=== PATIENT | male | born 1950 | race Caucasian/White ===

== ENCOUNTER → 2016-08-18 | Outpatient (CLI) | payer BC ==
[~2016-08-18] MED LIST: ASPCH81 PO; ASPI81TA28 PO; CLTP PO; GLUCTAB7 PO; LEVO50TA PO; LISI-725 PO; MULT-506 PO; OMEG10007 PO; REGADENOSON 0.4 MG/5 ML SYR ONE; SIMV20TA2 PO
--- NOTE | 2016-08-18 20:06 | Myocardial Perfusion Study ---
Myocardial Perfusion Study Rpt Myocardial Perfusion Study Rpt Date of Service 08/18/2016 Myocardial Perfusion Study Rpt Procedure: 1. Myocardial perfusion study performed in multiple views/images 2. Lexiscan pharmacologic stress ECG Indications: 1. Acute chest pain 2. Hyperlipidemia Consent: Informed written consent was obtained prior to the procedure. Ordering clinician: Clair Garcia Procedural details: For the stress portion of the study, Lexiscan 0.4 mg was intravenously administered followed by a saline flush. This was followed by 33 mCi of technetium 99m Cardiolite, injected at 1:15 p.m. on 08/18/16. 30 minutes following the injection, imaging of the heart was performed in multiple projections. For the rest portion of the study, 11.2 mCi technetium 99m Cardiolite was injected intravenously at 11:30 a.m. on 08/18/2016. 1 hour following the injection, imaging of the heart was performed in the same projections. Lexiscan stress ECG: Resting ECG demonstrated: NSR at 68 bpm Maximum heart rate: 91 bpm Resting blood pressure: 156/84 mmHg Maximum blood pressure: 156/84 mmHg Maximal, age-predicted heart rate: 58 % Significant ST changes: None Arrhythmia: None Symptoms: No chest pain reported. Findings: Rotating raw imaging demonstrated no significant lung uptake. There is no significant motion artifact. Heart size appeared normal. Myocardial perfusion was normal without significant fixed or reversible defect. Ejection fraction: 74 % Wall motion: Normal No significant transient ischemic dilation. Impression: 1. Normal myocardial perfusion without suggestion of significant ischemia or infarct. 2. Normal wall motion. 3. Hyperdynamic LV systolic function. EF 74%. 4. No arrhythmia. 5. No chest pain reported. 6. Nondiagnostic Lexiscan ECG.
== END | disposition home or self-care (01) ==
LOC: C.NUCL 11:13
PROVIDERS: ATTEND Nurse Practitioner Family
DX: R07.9 Chest pain, unspecified (principal); I10 Essential (primary) hypertension; I51.7 Cardiomegaly; E78.2 Mixed hyperlipidemia; M25.552 Pain in left hip

== ENCOUNTER → 2016-09-10 | Outpatient (CLI) | payer BC ==
[~2016-09-10] MED LIST changes: -REGADENOSON 0.4 MG/5 ML SYR ONE
--- NOTE | 2016-09-10 09:50 | DIAGNOSTIC IMAGING REPORT ---
LEFT HIP UNILATERAL 2 VIEWS CLINICAL HISTORY: 66 years-old Male presenting with LOWER BACK PAIN/LEFT HIP PAIN. TECHNIQUE: Frontal and frog-leg lateral views of the left hip were obtained. COMPARISON: None. FINDINGS: No acute fracture or malalignment. Hip joint congruent. No significant degenerative change. Regional soft tissues within normal limits. IMPRESSION: No acute osseous injury of the left hip. Electronically signed by: Collin Becker M.D. 09/10/2016 9:49 AM Dictated Date/Time: 09/10/2016 9:48 AM
--- NOTE | 2016-09-10 09:59 | DIAGNOSTIC IMAGING REPORT ---
L-SPINE MIN 4 VIEWS ROUTINE CLINICAL HISTORY: 66 years-old Male presenting with LOWER BACK PAIN/LEFT HIP PAIN. TECHNIQUE: Frontal, bilateral oblique, and lateral views of the lumbar spine as well as coned in lateral view of the lumbosacral junction were obtained. COMPARISON: Correlation made to abdominal radiograph from 2010. FINDINGS: Normal lumbar lordosis. Mild anterior vertebral body height loss at L1 and L2. Alignment maintained. Intervertebral disc spaces preserved. Multilevel degenerative changes evidenced by anterior osteophytosis at nearly every level. Osseous neural foraminal narrowing may be present at L4-5 and L5-S1. No radiographic evidence of acute fracture or subluxation. IMPRESSION: Multilevel degenerative changes with possible osseous neural foraminal narrowing at L4-5 and L5-S1. Mild anterior vertebral body height loss at L1 and 2 without mann evidence of compression fractures. Electronically signed by: Collin Becker M.D. 09/10/2016 9:57 AM Dictated Date/Time: 09/10/2016 9:54 AM
== END | disposition home or self-care (01) ==
LOC: C.RAD1850 09:24
PROVIDERS: ATTEND Nurse Practitioner Family
DX: M54.5 Low back pain (principal); M25.552 Pain in left hip; R26.2 Difficulty in walking, not elsewhere classified

== ENCOUNTER → 2016-11-25 | Day surgery (SDC) | payer BC ==
[2016-11-06 07:40] VITALS: Ht 167.6 cm; Wt 104.5 kg
[~2016-11-25] VITALS: Ht 167.6 cm; Wt 104.5 kg
[~2016-11-25] MED LIST changes: -ASPCH81 PO; +BUPIVACAINE 0.25% 2.5MG/ML PF 10 ML VIAL ONE; -CLTP PO; +IOPAMIDOL INJ 61% 15 ML VIAL ONE; +LIDOCAINE HCL 1% MPF 5 ML VIAL ONE
--- NOTE | 2016-11-25 15:29 | History & Physical Bridge - SC ---
H&P Re-Evaluation Bridge Note: I have examined the patient, reviewed the History & Physical and in the interval since the performance of the History & Physical I have noted the following changes of clinical significance: No changes noted
[2016-11-25 15:51] VITALS: TEMP 37.1
--- NOTE | 2016-11-25 15:52 | Discharge Instructions ---
Discharge Instructions Date of Service Nov 25, 2016. Visit Reason for Visit: Sacroiliitis Discharge Discharge Diagnosis / Problem: low back pain Discharge Goals Goal(s): Decrease discomfort, Improve function Activity Recommendations Activity Limitations: resume your previous activity Anesthesia . Post Anesthesia Instructions: If you have had General Anesthesia or IV Sedation: * Do not drive today. * Resume driving when surgeon permits. * Do not make important decisions or sign legal documents today. * Call surgeon for: 1. Temperature elevations greater than 101 degrees F. 2. Uncontrollable pain. 3. Excessive bleeding. 4. Persistent nausea and vomiting. 5. Medication intolerance (nausea, vomiting or rash). * For nausea and vomiting use only clear liquids such as: tea, soda, bouillon until nausea subsides, then gradually increase diet as tolerated. * If you have any concerns or questions, call your surgeon's office. If physician is unavailable and it is an emergency, call 911 or go to the nearest emergency room. . Diet Recommendations Recommended Home Diet: resume previous diet Procedures Procedures Performed: LEFT SACROILIAC JOINT INJECTION Pending Studies Studies pending at discharge: no Medical Emergencies . Who to Call and When: Medical Emergencies: If at any time you feel your situation is an emergency, please call 911 immediately. . Non-Emergent Contact Non-Emergency issues call your: Specialist . . "Provider Documentation" section prepared by Martin Ferreira. .
[2016-11-25 16:06] VITALS: BP 137/75; PULSE 79; O2SAT 97
--- NOTE | 2016-11-25 16:12 | OPERATIVE REPORT ---
DATE OF OPERATION: 11/25/2016 PREOPERATIVE DIAGNOSES: 1. Left sacroiliitis. 2. Underlying scoliosis. POSTOPERATIVE DIAGNOSIS: Same. PROCEDURE: Left SI joint injection under fluoroscopic guidance. SURGEON: Dr. Martin Ferreira. INDICATIONS: The patient is a 66-year-old white male who has sacroiliac problems and pain localizing to the SI joint. It has not responded to conservative treatment. He presents today for an SI joint injection to provide him with relief. PHYSICAL EXAMINATION: Pleasant male seated comfortably. He has point tenderness to palpation of the SI joint, worse with extension. No problems with flexion. Negative seated straight leg raise. Equivocal Mark maneuver, but positive sacral compression maneuver. CONSENT: Verbal and written consent was obtained from the patient. Risks and benefits were reviewed. Risks include but are not limited to abscess and allergic reaction. The patient wishes to proceed. PROCEDURE: The patient was taken back to the special procedures room of the [facility] where he was maintained in a prone position. Backside was cleansed with Betadine x3 and a dry sterile dressing was applied. Fluoroscope was used to identify the left SI joint and the overlying skin was anesthetized with 2.5 mL of lidocaine 1% with a 25 gauge 1.5-inch needle of lidocaine 1%. A 25 gauge 3.5 inch spinal needle was then directed under fluoroscopic guidance into the SI joint. Isovue-300 contrast 0.25 mL demonstrated intraarticular uptake. He then underwent injection after negative aspiration of 40 mg of Depo-Medrol and 1.5 mL of bupivacaine 0.25%. Injection was well tolerated. DISPOSITION: 1. The patient is taken out into the discharge recovery area where he will be discharged home once discharge criteria have been met. 2. Follow up in the [facility] office in 2-4 weeks. I attest to the content of the Intraoperative Record and any orders documented therein. Any exception s are noted below.
== END | disposition home or self-care (01) ==
LOC: X.SURG 14:13
PROVIDERS: ATTEND Physical Medicine & Rehabilitation
DX: M46.1 Sacroiliitis, not elsewhere classified (principal); M41.80 Other forms of scoliosis, site unspecified; I10 Essential (primary) hypertension; N40.0 Benign prostatic hyperplasia without lower urinary tract symptoms; Z79.82 Long term (current) use of aspirin; Z79.899 Other long term (current) drug therapy

== ENCOUNTER 2022-06-21 17:18 | Inpatient (IN) ==
[2022-06-21] MEDS ORDERED: HYDROmorphone INJ 1 MG/ML SYRINGE IV STA (17:51)
[2022-06-21] MEDS ORDERED: KETOROLAC 30 MG/ML VIAL IV STA (17:51)
[2022-06-21] MEDS ORDERED: dexAMETHasone**PF** 10 MG/ML VIAL IV ONE (17:51)
[2022-06-21] MEDS ORDERED: ONDANSETRON INJ 2 MG/ML 2 ML VIAL IV STA (17:51)
[2022-06-21 18:14] LABS: Basophils # (auto) 0.09 K/uL (0-0.2); Basophils % (auto) 0.5 %; Hematocrit (blood only) 45.1 % (42.0-52.0); Immature Granulocytes # (auto) 0.34 K/uL (0.01-0.20); Immature Granulocytes % (auto) 2.1 %; Lymphocytes # (auto) 2.07 K/uL (1.2-3.4); Lymphocytes % (auto) 12.6 %; Mean Corpuscular Hgb Conc 35.5 g/dL (32.0-36.0); Mean Corpuscular Volume 84.6 fL (80.0-100.0); Mean Platelet Volume 10.1 fL (9.4-12.4); Monocytes # (auto) 1.02 K/uL (0.11-0.59); Monocytes % (auto) 6.2 %; Neutrophils # (auto) 12.95 K/uL (1.40-6.50); Neutrophils % (auto) 78.6 %; Platelet Count 316 K/uL (130-400); RDW Coefficient of Variation 14.5 % (11.5-14.5); RDW Standard Deviation 44.4 fL (36.4-46.3); Red Blood Count 5.33 M/uL (4.70-6.10); White Blood Count 16.47 K/ul (4.8-10.8)
[2022-06-21 18:33] LABS: Alanine Aminotransferase 33 U/L (7-52); Albumin Globulin Ratio 1.3 (0.9-2); Albumin Level 4.3 gm/dl (3.4-5.0); Alkaline Phosphatase 60 U/L (34-104); Anion Gap 9 (3-11); Aspartate Aminotransferase 20 U/L (13-39); BUN Creatinine Ratio 31.6 (10-20); Bilirubin,Total 0.3 mg/dl (0.2-1.0); Blood Urea Nitrogen 30 mg/dl (6-23); C Reactive Protein < 0.50 mg/dl (0-0.5); Calcium 9.3 mg/dl (8.6-10.3); Carbon Dioxide 21 mmol/L (21-32); Chloride 105 mmol/L (98-107); Creatinine Clr Calc Pharmacy 81.1 ml/min; Est GFR (African American) 93.6 ml/min; Est GFR (Non-African American) 80.8 ml/min; Globulin 3.2 gm/dl (2.5-4.0); Glucose 151 mg/dl (70-99(Fasting)); Potassium 4.4 mmol/L (3.5-5.1); Sodium 135 mmol/L (136-145); Total Protein 7.5 gm/dl (6.0-8.3)
--- NOTE | 2022-06-21 19:50 | Magnetic Resonance Report ---
MR lumbar spine wo con CLINICAL HISTORY: Low back pain, L side sciatica TECHNIQUE: Multiplanar sequences through the lumbar spine were obtained, without intravenous contrast . Comparison: Comparison is made to spine radiographs 06/16/2022 and MRI lumbar spine 04/22/2021 FINDINGS: The alignment is anatomical. L1-L2: Broad-based posterior disc bulge is seen. There is mild canal stenosis but no significant neur al foraminal stenosis L2-L3: Broad base posterior disc bulge is seen with moderate canal stenosis, AP diameter 6 mm. Mild b ilateral neuroforaminal stenosis is seen. L3-L4: Broad-based posterior disc bulge is seen with mild canal stenosis and no significant neurofora yasmani stenosis. L4-L5: Broad base posterior disc bulge is seen with mild canal stenosis and severe bilateral neural f oraminal stenosis. L5-S1: Broad-based posterior disc bulge is seen with no significant stenosis but with moderate to sev ere bilateral neural foraminal stenosis. The spinal ligaments are intact, without evidence of disruption or abnormal signal intensity. The spi nal cord is normal in signal intensity and there is no evidence of cord contusion. There is no eviden ce of an extradural, intradural, extramedullary or intramedullary lesion. Tiny bilateral renal cysts are seen with perinephric stranding also noted. IMPRESSION: Multilevel degenerative changes are seen with up to moderate canal stenosis, AP diameter 6 mm, and se igor bilateral neural foraminal stenosis. Findings appear stable to minimally increased from MRI of 2 022 . ACT 112: Negative or not required by law. Electronically signed by: Jere Liu M.D. 06/21/2022 7:48 PM
[2022-06-21] MEDS ORDERED: HYDROmorphone INJ 0.5 MG/0.5 ML SYR IV STA (20:22)
--- NOTE | 2022-06-21 20:39 | Emergency Department Note ---
ED Visit Note I was consulted by the Advanced Practice Provider. I saw the patient personally and performed a substantive portion of the visit. This includes aspects of the HPI, MDM, diagnostic interpretations, and disposition/plan. Patient presents with severe back pain. The MRI today appears basically unchanged from the previous MRI. Spinal surgery has been consulted. The patient's pain is unbearable though and hospitalization has been advised. .
--- NOTE | 2022-06-21 21:05 | Emergency Department Note ---
History of Present Illness General Chief complaint: Lower Extremity Injury/Pain Stated complaint: PAIN LEFT HIP DOWN LEG,UNABLE TO WALK History of Present Illness Maximum Pain Intensity: 8 This is a 72-year-old male presenting to the emergency department for evaluation of severe right leg pain worsening over the past week. The patient has had ongoing back problems for several years and is with history of spinal stenosis. He has not had back surgery, and did have an ER visit earlier this week for this complaint. At that visit x-rays were performed which did not show any acute findings. He was started on oxycodone which she has been taking without relief. The patient is under the care of [facility], and seems to have had lumbar injections without relief within the past 2 weeks. Patient himself has not had fevers or chills. No chest pain, chest tightness, shortness of breath. He is able to use the bathroom. He is not able to walk because of the level of pain. It is an 8/10 at base and 10/10 with movement. Additionally he has been on prednisone. Home Medications Medication Instructions Recorded Confirmed Type oxycodone 5 mg tablet 5 mg PO Q6H PRN pain #12 tabs 06/16/22 06/21/22 Rx amlodipine 5 mg tablet 5 mg PO QAM 06/21/22 06/21/22 History aspirin 81 mg tablet,delayed 81 mg PO QAM 06/21/22 06/21/22 History release levothyroxine 50 mcg tablet 50 mcg PO DAILYBB 06/21/22 06/21/22 History (Synthroid) lisinopril 20 mg tablet 20 mg PO QAM 06/21/22 06/21/22 History multivitamin 1 tab PO QAM 06/21/22 06/21/22 History sildenafil 25 mg tablet 25 mg PO UD PRN Sexual Activity 06/21/22 06/21/22 History simvastatin 20 mg tablet 20 mg PO HS 06/21/22 06/21/22 History Allergies Allergy/AdvReac Type Severity Reaction Status Date / Time No Known Allergies Allergy Unverified 06/21/22 21:27 Past Med/Surg History Medical History (Updated 06/22/22 @ 10:42 by Martin Farmer DO) Erectile dysfunction Hyperlipidemia Hypertension Hypothyroidism (acquired) Spinal stenosis of lumbar region Surgical History No pertinent past surgical history Social History Smoking Status: Never smoker Second Hand Exposure: No; Do You Dip or Chew Tobacco: No; Tobacco Cessation Education Requested by Patient: No Hx Alcohol Use: No Hx Substance Use: No Preferred Language: Tajik Communication Ability: Effective Material Disposition Inspector Required: No Beliefs That Will Affect Care: None Current Living Situation: Spouse Other Information That Helps Us Care for You: No Feels Safe at Home: Yes Safety Concerns: Feels Safe At This Time Assistive Devices: Walker Review of Systems A total of 10 systems reviewed and were otherwise negative Physical Exam Vital Signs Vital Signs - 24 hr 06/21/22 17:33 06/21/22 18:10 06/21/22 20:53 Temperature 36.4 C L Temperature Source Temporal Artery Scan Pulse Rate 91 H Pulse Rate [Right Apical] 79 Respiratory Rate 18 18 Respiratory Effort / Characteristics Non-Labored Spontaneous Respiratory Depth Normal Respiratory Pattern Regular Blood Pressure 142/82 H Blood Pressure [Left Arm] 149/73 H Blood Pressure Mean 102 Blood Pressure Mean [Left Arm] 98 Pulse Oximetry 95 93 93 Oxygen Delivery Method Room Air Room Air Room Air Sepsis Recent Fever Within 48 Hours No Sepsis New/Unexplained Change in Mental Status No Sepsis Action Taken by Nursing No Action Required VITALS: Vitals are noted on the nurse's note and reviewed by myself. Vital signs stable. GENERAL: Well-developed, well-nourished, white male, who is in moderate discomfort at rest with more severe discomfort with movement. He is laying on his right side in the ER bed. HEAD: Normocephalic atraumatic. NECK: Supple without nuchal rigidity. No lymphadenopathy. No thyromegaly. Cervical spine is nontender. HEART: Regular rate and rhythm without murmurs gallops or rubs. LUNGS: Clear to auscultation bilaterally without wheezes, rales or rhonchi. No retractions or accessory muscle use. ABDOMEN: Positive normal bowel sounds x 4. Soft, nontender, without masses or organomegaly. No guarding or rebound tenderness. BACK: Positive tenderness throughout the left SI joint distribution. Positive straight leg raise. No saddle paresthesias. MUSCULOSKELETAL: No muscle atrophy, erythema, or edema noted. Full range of motion in all extremities. NEURO: Patient was alert and oriented to person place and time. CN II through XII grossly intact. No focal neurological deficits. Deep tendon reflexes 2+ throughout. Course Administered Medications Amlodipine Besylate (Amlodipine Besylate 5 Mg Tab) 5 mg PO QAM [facility] Stop: 07/22/22 08:59 Last Admin: 06/22/22 08:28 Dose: 5 mg Documented By: MEENAKSHI Heparin Sodium (Porcine) (Heparin Sod 5,000 Unit/0.5 Ml Vial) 5,000 units SQ Q12 ABDIRASHID Stop: 07/22/22 08:59 Last Admin: 06/22/22 08:29 Dose: 5,000 units Documented By: MEENAKSHI Hydromorphone HCl (Hydromorphone Inj 1 Mg/Ml Syringe) 1 mg IV Q4H PRN PRN Reason: Pain Stop: 07/05/22 22:08 Last Admin: 06/22/22 10:31 Dose: 1 mg Documented By: MEENAKSHI Lactated Ringer's (Lr) 1,000 mls @ 80 mls/hr IV .[id number] [facility] Stop: 07/21/22 22:08 Last Admin: 06/22/22 11:08 Dose: 80 mls/hr Documented By: Infusion: 06/22/22 11:00 Dose: 80 mls/hr Documented By: Admin: 06/21/22 22:30 Dose: 80 mls/hr Documented By: KAITY Dexamethasone 4 mg/ Syringe 1 mls @ 1 mls/min IV Q8H [facility] Stop: 07/22/22 06:59 Last Admin: 06/22/22 06:21 Dose: 1 mls/min Documented By: BRYAN Levothyroxine Sodium (Levothyroxine Sodium 50 Mcg Tablet) 50 mcg PO DAILYBB [facility] Stop: 07/22/22 06:29 Last Admin: 06/22/22 05:53 Dose: 50 mcg Documented By: BRYAN Lisinopril (Lisinopril 20 Mg Tab) 20 mg PO QAM [facility] Stop: 07/22/22 08:59 Last Admin: 06/22/22 08:28 Dose: 20 mg Documented By: MEENAKSHI Multivitamins (Multivitamin Tab) 1 tab PO QAM [facility] Stop: 07/22/22 08:59 Last Admin: 06/22/22 08:28 Dose: 1 tab Documented By: MEENAKSHI Oxycodone HCl (Oxycodone Hcl Ir 5 Mg Tab (Immediate Release)) 5 mg PO Q4H PRN PRN Reason: Moderate Pain (Scale 4, 5, 6) Stop: 07/05/22 22:08 Last Admin: 06/22/22 12:34 Dose: 5 mg Documented By: TONY Discontinued Medications Dexamethasone Sodium Phosphate (DexamethasonePf 10 Mg/Ml Vial) 10 mg IV NOW ONE Stop: 06/21/22 17:52 Last Admin: 06/21/22 18:15 Dose: 10 mg Documented By: ALFONSO Hydromorphone HCl (Hydromorphone Inj 1 Mg/Ml Syringe) 1 mg IV NOW STA Stop: 06/21/22 17:52 Last Admin: 06/21/22 18:14 Dose: 1 mg Documented By: ALFONSO Hydromorphone HCl (Hydromorphone Inj 0.5 Mg/0.5 Ml Syr) 0.5 mg IV NOW STA Stop: 06/21/22 20:23 Last Admin: 06/21/22 20:27 Dose: 0.5 mg Documented By: ALFONSO Ketorolac Tromethamine (Ketorolac 30 Mg/Ml Vial) 30 mg IV NOW STA Stop: 06/21/22 17:52 Last Admin: 06/21/22 18:14 Dose: 30 mg Documented By: ALFONSO Ondansetron HCl (Ondansetron Inj 2 Mg/Ml 2 Ml Vial) 4 mg IV NOW STA Stop: 06/21/22 17:52 Last Admin: 06/21/22 18:12 Dose: 4 mg Documented By: ALFONSO Medical Decision Making Differential Diagnosis Differential diagnosis: Etiologies such as muscular strain, fracture, metastatic disease, disc herniation, sciatica, epidural abscess, vertebral osteomyelitis, discitis, spinal epidural hematoma, cord compression, cauda equina/conus medullaris syndrome, aortic disease, infection, shingles, renal colic UTI/pyelonephritis, gastrointestinal, acute exacerbation of chronic back pain, as well as others were entertained. Laboratory Data 06/21/22 17:59 06/21/22 17:59 Lab Results 06/21/22 06/21/22 06/21/22 Range/Units 17:59 17:59 17:59 WBC 16.47 H (4.8-10.8) K/ul RBC 5.33 (4.70-6.10) M/uL Hgb 16.0 (14.0-18.0) g/dl Hct 45.1 (42.0-52.0) % MCV 84.6 (80.0-100.0) fL MCH 30.0 (25.0-34.0) pg MCHC 35.5 (32.0-36.0) g/dL RDW Std Deviation 44.4 (36.4-46.3) fL RDW Coeff of Delvin 14.5 (11.5-14.5) % Plt Count 316 (130-400) K/uL MPV 10.1 (9.4-12.4) fL Immature Gran % (Auto) 2.1 % Neut % (Auto) 78.6 % Lymph % (Auto) 12.6 % [place] % (Auto) 6.2 % Eos % (Auto) 0.0 % Baso % (Auto) 0.5 % Neut # (Auto) 12.95 H (1.40-6.50) K/uL Lymph # (Auto) 2.07 (1.2-3.4) K/uL [place] # (Auto) 1.02 H (0.11-0.59) K/uL Eos # (Auto) 0.00 (0-0.50) K/uL Baso # (Auto) 0.09 (0-0.2) K/uL Immature Gran # (Auto) 0.34 H (0.01-0.20) K/uL ESR 11 (0-20) mm/hr Sodium 135 L (136-145) mmol/L Potassium 4.4 (3.5-5.1) mmol/L Chloride 105 (98-107) mmol/L Carbon Dioxide 21 (21-32) mmol/L Anion Gap 9 (3-11) BUN 30 H (6-23) mg/dl Creatinine 0.95 (0.6-1.4) mg/dl Est Cr Clr Drug Dosing 81.1 ml/min Est GFR ( Amer) 93.6 ml/min Est GFR (Non-Af Amer) 80.8 ml/min BUN/Creatinine Ratio 31.6 H (10-20) Glucose 151 H (70-99(Fasting)) mg/dl Calcium 9.3 (8.6-10.3) mg/dl Total Bilirubin 0.3 (0.2-1.0) mg/dl AST 20 (13-39) U/L ALT 33 (7-52) U/L Alkaline Phosphatase 60 (34-104) U/L C-Reactive Protein < 0.50 (0-0.5) mg/dl Total Protein 7.5 (6.0-8.3) gm/dl Albumin 4.3 (3.4-5.0) gm/dl Globulin 3.2 (2.5-4.0) gm/dl Albumin/Globulin Ratio 1.3 (0.9-2) SARS-CoV-2, RNA, NAAT (NEGATIVE) 06/21/22 Range/Units 20:29 WBC (4.8-10.8) K/ul RBC (4.70-6.10) M/uL Hgb (14.0-18.0) g/dl Hct (42.0-52.0) % MCV (80.0-100.0) fL MCH (25.0-34.0) pg MCHC (32.0-36.0) g/dL RDW Std Deviation (36.4-46.3) fL RDW Coeff of Delvin (11.5-14.5) % Plt Count (130-400) K/uL MPV (9.4-12.4) fL Immature Gran % (Auto) % Neut % (Auto) % Lymph % (Auto) % [place] % (Auto) % Eos % (Auto) % Baso % (Auto) % Neut # (Auto) (1.40-6.50) K/uL Lymph # (Auto) (1.2-3.4) K/uL [place] # (Auto) (0.11-0.59) K/uL Eos # (Auto) (0-0.50) K/uL Baso # (Auto) (0-0.2) K/uL Immature Gran # (Auto) (0.01-0.20) K/uL ESR (0-20) mm/hr Sodium (136-145) mmol/L Potassium (3.5-5.1) mmol/L Chloride (98-107) mmol/L Carbon Dioxide (21-32) mmol/L Anion Gap (3-11) BUN (6-23) mg/dl Creatinine (0.6-1.4) mg/dl Est Cr Clr Drug Dosing ml/min Est GFR ( Amer) ml/min Est GFR (Non-Af Amer) ml/min BUN/Creatinine Ratio (10-20) Glucose (70-99(Fasting)) mg/dl Calcium (8.6-10.3) mg/dl Total Bilirubin (0.2-1.0) mg/dl AST (13-39) U/L ALT (7-52) U/L Alkaline Phosphatase (34-104) U/L C-Reactive Protein (0-0.5) mg/dl Total Protein (6.0-8.3) gm/dl Albumin (3.4-5.0) gm/dl Globulin (2.5-4.0) gm/dl Albumin/Globulin Ratio (0.9-2) SARS-CoV-2, RNA, NAAT NEGATIVE (NEGATIVE) Imaging Data Radiologist's Impression: Lumbar Spine MRI 06/21/22 17:51 MR lumbar spine wo con CLINICAL HISTORY: Low back pain, L side sciatica TECHNIQUE: Multiplanar sequences through the lumbar spine were obtained, without intravenous contrast. Comparison: Comparison is made to spine radiographs 06/16/2022 and MRI lumbar spine 04/22/2021 FINDINGS: The alignment is anatomical. L1-L2: Broad-based posterior disc bulge is seen. There is mild canal stenosis but no significant neural foraminal stenosis L2-L3: Broad base posterior disc bulge is seen with moderate canal stenosis, AP diameter 6 mm. Mild bilateral neuroforaminal stenosis is seen. L3-L4: Broad-based posterior disc bulge is seen with mild canal stenosis and no significant neuroforaminal stenosis. L4-L5: Broad base posterior disc bulge is seen with mild canal stenosis and severe bilateral neural foraminal stenosis. L5-S1: Broad-based posterior disc bulge is seen with no significant stenosis but with moderate to severe bilateral neural foraminal stenosis. The spinal ligaments are intact, without evidence of disruption or abnormal signal intensity. The spinal cord is normal in signal intensity and there is no evidence of cord contusion. There is no evidence of an extradural, intradural, extramedullary or intramedullary lesion. Tiny bilateral renal cysts are seen with perinephric stranding also noted. IMPRESSION: Multilevel degenerative changes are seen with up to moderate canal stenosis, AP diameter 6 mm, and severe bilateral neural foraminal stenosis. Findings appear stable to minimally increased from MRI of 2021 . ACT 112: Negative or not required by law. Electronically signed by: Jere Liu M.D. 06/21/2022 7:48 PM MDM Narrative Physical exam and history were performed. Nursing notes, EMR, and Medication List were personally reviewed. No social concerns were identified as barriers to patients care. Patient appears to have worsening back pain despite oxycodone, prednisone, and interventional pain management. He does not have significant neurologic deficit on my exam, but does appear quite uncomfortable. IV access was established and labs were obtained. He was medicated with IV Toradol, IV Dilaudid, IV Zofran, and IV Decadron. He was sent to MRI for further evaluation. Patient's blood work is as above and was reviewed. He does have an elevated white count of 16,000, however this is felt to be from his steroid use. Sed rate and CRP are unremarkable. Glucose is slightly elevated at 151. Tra nsaminases are not diagnostic. MRI was reviewed by myself and radiology. He does have several chronic findings but no significant acute surgical findings. On reevaluation the patient felt minimally improved with intervention. He is still with significant pain of movement and is felt to be high risk for falling with ambulation. Case was discussed with my attending physician, Dr. Stovall, who also evaluated the patient. The patient does not seem well for discharge. The case was discussed with the on-call orthospine specialist, Dr. Farmer, who will consult on the patient the case was discussed with the on-call hospitalist team who agreed to evaluate the patient. Please see their dictation for further patient course, plan, disposition. The chart was completed utilizing [employer] Speech Voice Recognition Software. Grammatical errors, random word insertions, pronoun errors, and incomplete sentences are an occasional consequence of this system due to software limitations, ambient noise, and hardware issues. Any formal questions or concerns about the content, text, or information contained within the body of this dictation should be directly addressed to the provider for clarification. . Impression & Plan Intractable back pain, Sciatica of left side Discharge Plan Visit Data Chief Complaint: Lower Extremity Injury/Pain Stated Complaint: PAIN LEFT HIP DOWN LEG,UNABLE TO WALK ED Provider: Dominick Stovall ED Midlevel Provider: Arley Dalton Discharge Problem: Intractable back pain, Sciatica of left side Patient Disposition: Admitted As Inpatient Discharge Instructions Interventions: ED Discharge Assessment Last Done: 06/21/22 22:50
--- NOTE | 2022-06-21 21:50 | History & Physical Report ---
Date of Service June 21, 2022 Assessment & Plan (1) Lumbar degenerative disc disease: (2) Spinal stenosis of lumbar region: (3) Lumbar back pain with radiculopathy affecting left lower extremity: (4) Hypertension: (5) Hyperlipidemia: (6) Hypothyroidism (acquired): (7) Intractable back pain: Plan Intractable low back pain and left lower extremity radiculopathy/lumbar degenerative disc disease/lumbar spinal stenosis- Admit to medical surgical floor N.p.o. except medications Received dexamethasone 10 mg IV in the ED, will continue 4 mg IV every 8 hours Acetaminophen 650 mg every 6 hours as needed for mild pain or fever Oxycodone 5 mg by mouth every 4 hours as needed for moderate pain Dilaudid 1 mg IV every 4 hours as needed for severe pain Zofran 4 mg IV every 6 hours as needed Consult orthopedic spine surgery Dr. Farmer Hypertension- Continue amlodipine, lisinopril Hypothyroidism- Continue levothyroxine Hyperlipidemia- Continue simvastatin History of Present Illness Chief Complaint: The patient presents to the emergency department with progressive worsening of low back pain with left lower extremity radiculopathy that it is unbearable. Primary Care Provider: Brian Ulloa The patient is a 72-year-old espinoza with a past medical history including hypertension, hypothyroidism, ED, hyperlipidemia and lumbar degenerative disc disease with left lower extremity radiculopathy. He has been undergoing recent treatment, with having had injections at [facility] recently, which she reports helped the right side, but did not help the left side. He was to have a follow-up appointment later this week at their office, but due to severe pain, presented ED for assessment. MRI performed shows multilevel degenerative disc disease, and after no significant improvement with Toradol, dexamethasone, Dilaudid, Zofran, the ED discussed with orthopedic spine surgery Dr. Farmer, and asked that the patient be admitted to the medical service Allergies Allergy/AdvReac Type Severity Reaction Status Date / Time No Known Allergies Allergy Unverified 06/21/22 21:27 Home Medications Medication Instructions Recorded Confirmed Type oxycodone 5 mg tablet 5 mg PO Q6H PRN pain #12 tabs 06/16/22 06/21/22 Rx amlodipine 5 mg tablet 5 mg PO QAM 06/21/22 06/21/22 History aspirin 81 mg tablet,delayed 81 mg PO QAM 06/21/22 06/21/22 History release levothyroxine 50 mcg tablet 50 mcg PO DAILYBB 06/21/22 06/21/22 History (Synthroid) lisinopril 20 mg tablet 20 mg PO QAM 06/21/22 06/21/22 History multivitamin 1 tab PO QAM 06/21/22 06/21/22 History sildenafil 25 mg tablet 25 mg PO UD PRN Sexual Activity 06/21/22 06/21/22 History simvastatin 20 mg tablet 20 mg PO HS 06/21/22 06/21/22 History Past Med/Surg History Medical History (Updated 06/22/22 @ 04:39 by Sal Haywood MD) Erectile dysfunction Hyperlipidemia Hypertension Hypothyroidism (acquired) Spinal stenosis of lumbar region Surgical History No pertinent past surgical history Social History Smoking Status: Never smoker Second Hand Exposure: No; Do You Dip or Chew Tobacco: No; Tobacco Cessation Education Requested by Patient: No Hx Alcohol Use: No Hx Substance Use: No Preferred Language: Citizen Of The [place] Communication Ability: Effective 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 Beliefs That Will Affect Care: None Current Living Situation: Spouse Other Information That Helps Us Care for You: No Feels Safe at Home: Yes Safety Concerns: Feels Safe At This Time Assistive Devices: Hospital Bed and Walker Review of Systems Review of Systems: The patient denies chest pain, palpitations, shortness of breath, dyspnea on exertion, cough, lower extremity swelling, sore throat, fevers, chills, sweats, weight change, fatigue, nausea, vomiting, diarrhea , constipation, abdominal pain, pelvic pain, blood in urine or stool, dysuria, urinary frequency or urgency, lightheadedness, dizziness, headache, memory loss, loss of consciousness, rash, abnormal bruising or bleeding, focal or generalized weakness, numbness or tingling in arms, generalized arthralgias or myalgias, neck pain, or night sweats. The review of systems is otherwise negative other than for that already noted above, and at least 10 systems have been reviewed. Physical Exam Physical Exam: The patient is awake, alert and oriented 3, well developed and well nourished, normocephalic and atraumatic, lying in bed and in mild to residual acute distress. HEENT--PERRL, EOMI, mucous membranes and oropharynx dry. Neck--supple. No JVD. No bruits. Thyroid normal, trachea midline, no adenopathy. Heart--normal S1 and S2. No murmurs, rubs or gallops. Lungs--clear bilaterally, no respiratory distress, no accessory muscle use. Abdomen--normal bowel sounds and soft. Nontender. Nondistended, no hernias or masses, no organomegaly. Extremities--no cyanosis or clubbing. No edema. There are good distal pulses b/l. Dermatologic--normal skin turgor, normal color, no abnormal lymph nodes, no rash. Neurologic--cranial nerves II through XII grossly intact. Rheumatologic--limited exam due to low back and left lower extremity pain Psychiatric--normal affect. Results & Data Results & Data Vital Signs (Past 12 Hours) Vital Signs Temp Pulse Pulse Resp BP BP Pulse Ox 06/21/22 20:53 93 06/21/22 18:10 79 18 149/73 H 93 06/21/22 17:33 36.4 C L 91 H 18 142/82 H 95 O2 Del Method 06/21/22 20:53 Room Air 06/21/22 18:10 Room Air 06/21/22 17:33 Room Air Laboratory Results Laboratory Results WBC 16.47 K/ul (4.8-10.8) H 06/21/22 17:59 RBC 5.33 M/uL (4.70-6.10) 06/21/22 17:59 Hgb 16.0 g/dl (14.0-18.0) 06/21/22 17:59 Hct 45.1 % (42.0-52.0) 06/21/22 17:59 MCV 84.6 fL (80.0-100.0) 06/21/22 17:59 MCH 30.0 pg (25.0-34.0) 06/21/22 17:59 MCHC 35.5 g/dL (32.0-36.0) 06/21/22 17:59 RDW Std Deviation 44.4 fL (36.4-46.3) 06/21/22 17:59 RDW Coeff of Delvin 14.5 % (11.5-14.5) 06/21/22 17:59 Plt Count 316 K/uL (130-400) 06/21/22 17:59 MPV 10.1 fL (9.4-12.4) 06/21/22 17:59 Immature Gran % (Auto) 2.1 % 06/21/22 17:59 Neut % (Auto) 78.6 % 06/21/22 17:59 Lymph % (Auto) 12.6 % 06/21/22 17:59 [place] % (Auto) 6.2 % 06/21/22 17:59 Eos % (Auto) 0.0 % 06/21/22 17:59 Baso % (Auto) 0.5 % 06/21/22 17:59 Neut # (Auto) 12.95 K/uL (1.40-6.50) H 06/21/22 17:59 Lymph # (Auto) 2.07 K/uL (1.2-3.4) 06/21/22 17:59 [place] # (Auto) 1.02 K/uL (0.11-0.59) H 06/21/22 17:59 Eos # (Auto) 0.00 K/uL (0-0.50) 06/21/22 17:59 Baso # (Auto) 0.09 K/uL (0-0.2) 06/21/22 17:59 Immature Gran # (Auto) 0.34 K/uL (0.01-0.20) H 06/21/22 17:59 ESR 11 mm/hr (0-20) 06/21/22 17:59 Sodium 135 mmol/L (136-145) L 06/21/22 17:59 Potassium 4.4 mmol/L (3.5-5.1) 06/21/22 17:59 Chloride 105 mmol/L (98-107) 06/21/22 17:59 Carbon Dioxide 21 mmol/L (21-32) 06/21/22 17:59 Anion Gap 9 (3-11) 06/21/22 17:59 BUN 30 mg/dl (6-23) H 06/21/22 17:59 Creatinine 0.95 mg/dl (0.6-1.4) 06/21/22 17:59 Est Cr Clr Drug Dosing 81.1 ml/min 06/21/22 17:59 Est GFR ( Amer) 93.6 ml/min 06/21/22 17:59 Est GFR (Non-Af Amer) 80.8 ml/min 06/21/22 17:59 BUN/Creatinine Ratio 31.6 (10-20) H 06/21/22 17:59 Glucose 151 mg/dl (70-99(Fasting)) H 06/21/22 17:59 Calcium 9.3 mg/dl (8.6-10.3) 06/21/22 17:59 Total Bilirubin 0.3 mg/dl (0.2-1.0) 06/21/22 17:59 AST 20 U/L (13-39) 06/21/22 17:59 ALT 33 U/L (7-52) 06/21/22 17:59 Alkaline Phosphatase 60 U/L (34-104) 06/21/22 17:59 C-Reactive Protein < 0.50 mg/dl (0-0.5) 06/21/22 17:59 Total Protein 7.5 gm/dl (6.0-8.3) 06/21/22 17:59 Albumin 4.3 gm/dl (3.4-5.0) 06/21/22 17:59 Globulin 3.2 gm/dl (2.5-4.0) 06/21/22 17:59 Albumin/Globulin Ratio 1.3 (0.9-2) 06/21/22 17:59 SARS-CoV-2, RNA, NAAT NEGATIVE (NEGATIVE) 06/21/22 20:29 Impressions Lumbar Spine MRI 06/21/22 17:51 MR lumbar spine wo con CLINICAL HISTORY: Low back pain, L side sciatica TECHNIQUE: Multiplanar sequences through the lumbar spine were obtained, without intravenous contrast. Comparison: Comparison is made to spine radiographs 06/16/2022 and MRI lumbar spine 04/22/2021 FINDINGS: The alignment is anatomical. L1-L2: Broad-based posterior disc bulge is seen. There is mild canal stenosis but no significant neural foraminal stenosis L2-L3: Broad base posterior disc bulge is seen with moderate canal stenosis, AP diameter 6 mm. Mild bilateral neuroforaminal stenosis is seen. L3-L4: Broad-based posterior disc bulge is seen with mild canal stenosis and no significant neuroforaminal stenosis. L4-L5: Broad base posterior disc bulge is seen with mild canal stenosis and severe bilateral neural foraminal stenosis. L5-S1: Broad-based posterior disc bulge is seen with no significant stenosis but with moderate to severe bilateral neural foraminal stenosis. The spinal ligaments are intact, without evidence of disruption or abnormal signal intensity. The spinal cord is normal in signal intensity and there is no evidence of cord contusion. There is no evidence of an extradural, intradural, extramedullary or intramedullary lesion. Tiny bilateral renal cysts are seen with perinephric stranding also noted. IMPRESSION: Multilevel degenerative changes are seen with up to moderate canal stenosis, AP diameter 6 mm, and severe bilateral neural foraminal stenosis. Findings appear stable to minimally increased from MRI of 2021 . ACT 112: Negative or not required by law. Electronically signed by: Jere Liu M.D. 06/21/2022 7:48 PM Code Status & VTE Plan Code Status Full code VTE Prophylaxis Plan VTE Prophylaxis will be ordered: Yes PG Care Time/CCT Total # of Minutes Spent Total Time Spent with Patient: Total time spent is greater than 50% in coordination of care (as documented) at patient's floor/unit and/or counseling patient: Coding Level of Care Code 72258 INT INP/OBS CARE 3/75MIN Diagnoses Lumbar degenerative disc disease M51.36 Spinal stenosis of lumbar region M48.061 Lumbar back pain with radiculopathy affecting left lower extremity M54.16 Hypertension I10 Hyperlipidemia E78.5 Hypothyroidism (acquired) E03.9 Intractable back pain M54.9
[2022-06-21] MEDS ORDERED: oxyCODONE HCL IR 5 MG TAB (IMMEDIATE RELEASE) PO PRN (22:09)
[2022-06-21] MEDS: LACTATED RINGER'S 1,000 ML IV SCH (22:30)
[2022-06-22] MEDS: LEVOTHYROXINE SODIUM 50 MCG TABLET PO SCH (05:53)
[2022-06-22] MEDS: dexAMETHasone 4 MG in SYRINGE 0 ML IV SCH ×3 (06:21→22:32)
[2022-06-22 07:11] LABS: Appearance Urine Clear (Clear); Bilirubin Urine Negative (Negative); Blood Urine Negative (Negative); Color Urine Yellow; Glucose Urine UA Negative (Negative); Ketones Urine Negative (Negative); Leukocyte Esterase Urine Negative (Negative); Nitrite Urine Negative (Negative); Protein Urine Negative (Negative); Urobilinogen Urine Negative (Negative)
[2022-06-22] MEDS: amLODIPine BESYLATE 5 MG TAB PO SCH (08:28)
[2022-06-22] MEDS: MULTIVITAMIN TAB PO SCH (08:28)
[2022-06-22] MEDS: HEPARIN SOD 5,000 UNIT/0.5 ML VIAL SQ SCH ×2 (08:29→22:32)
[2022-06-22] MEDS ORDERED: lisinopril 20 MG TAB PO SCH (09:00)
[2022-06-22] MEDS: HYDROmorphone INJ 1 MG/ML SYRINGE IV PRN ×3 (10:31→22:34)
--- NOTE | 2022-06-22 10:43 | Orthopedic Consultation ---
Date of Consultation June 22, 2022 Assessment & Plan (1) Lumbar disc herniation with radiculopathy: MRI lumbar spine does demonstrate multilevel lumbar spinal stenosis compressive at L3-L4 and L4-L5 over the I believe the majority of symptom complex is coming from the foraminal stenosis L5-S1 the left with evidence of possible far lateral extraforaminal disc herniation. There is marked assault on the exiting L5 nerve root. Plan at length suggestion today with the patient and his reviewing his MRI findings clinical course and treatment options. He has marked decline in status weakness not responding to medications and would like to pursue surgical invention. While I will do knowledge adjacent level stenosis majority of symptoms today are at the L5-S1 level. We would have recommended lumbar decompression and fusion L5-S1 he would require complete facetectomy for adequate and safe decompression of the exiting nerve root. He would subsequently require fusion. Risk benefits pros cons alternatives were in detail. Risk include but not limited to from anesthesia blindness stroke paralysis nerve damage blood loss requiring transfusion infection requiring reoperation but is with a marked improvement of his radiculopathy. This time he will make n.p.o. after midnight we will plan for surgery first thing in the morning. History of Present Illness Reason for Consultation: Left leg pain with weakness Attending Physician: Vladimir Suh MD History of Present Illness This is a 72-year-old male who presents with 9 days of severe left leg pain. Is been markedly incapacitating in nature. Is not been able to ambulate. He did have a lumbar epidural injection early in May for generalized back and leg symptoms but this is a marked change in status. Radiates in the left buttock posterior lateral thigh below the knee into his left great toe. He has sensory and temperature changes to the left lower extremity. He notes weakness to the left foot. The right lower extremity is asymptomatic. He is currently on IV Dilaudid which provides little to no help in his pain. He is not responding to oral medicines. Allergies Allergy/AdvReac Type Severity Reaction Status Date / Time No Known Allergies Allergy Unverified 06/21/22 21:27 Home Medications Medication Instructions Recorded Confirmed Type oxycodone 5 mg tablet 5 mg PO Q6H PRN pain #12 tabs 06/16/22 06/21/22 Rx amlodipine 5 mg tablet 5 mg PO QAM 06/21/22 06/21/22 History aspirin 81 mg tablet,delayed 81 mg PO QAM 06/21/22 06/21/22 History release levothyroxine 50 mcg tablet 50 mcg PO DAILYBB 06/21/22 06/21/22 History (Synthroid) lisinopril 20 mg tablet 20 mg PO QAM 06/21/22 06/21/22 History multivitamin 1 tab PO QAM 06/21/22 06/21/22 History sildenafil 25 mg tablet 25 mg PO UD PRN Sexual Activity 06/21/22 06/21/22 History simvastatin 20 mg tablet 20 mg PO HS 06/21/22 06/21/22 History Patient History Medical History (Updated 06/22/22 @ 10:42 by Martin Farmer DO) Erectile dysfunction Hyperlipidemia Hypertension Hypothyroidism (acquired) Spinal stenosis of lumbar region Surgical History No pertinent past surgical history Social History Smoking Status: Never smoker Second Hand Exposure: No; Do You Dip or Chew Tobacco: No; Tobacco Cessation Education Requested by Patient: No Hx Alcohol Use: No Hx Substance Use: No Preferred Language: Latvian Communication Ability: Effective Investigator Operator Required: No Beliefs That Will Affect Care: None Current Living Situation: Spouse Other Information That Helps Us Care for You: No Feels Safe at Home: Yes Safety Concerns: Feels Safe At This Time Assistive Devices: Hospital Bed and Walker Physical Exam Physical Exam: On exam he is in obvious distress. He prefers the position. He is tearful secondary to the pain. He exhibits marked tension signs with even subtle straight leg raising on the left. He has 3/5 left extensor houses longus compared to the right. Plantarflexion dorsiflexion appears symmetric and intact. There is sensory changes to light touch. Results & Data Vital Signs (Past 12 Hours) Vital Signs Temp Pulse Resp BP Pulse Ox O2 Del Method 06/22/22 08:00 Room Air 06/22/22 07:50 36.7 C 86 18 162/82 H 98 Room Air 06/22/22 07:31 36.4 C L 75 20 164/81 H 95 Room Air 06/21/22 23:40 Room Air 06/21/22 23:40 36.4 C L 72 18 186/63 H 94 Room Air 06/21/22 23:40 Room Air
[2022-06-22] MEDS: LACTATED RINGER'S 1,000 ML IV SCH (11:08)
[2022-06-22] MEDS: POLYETHYLENE (MIRALAX) 17 GM PACK PO SCH (14:47)
[2022-06-22] MEDS: SENNA 8.6 MG TAB PO SCH (14:49)
--- NOTE | 2022-06-22 20:59 | Hospitalist Progress Note ---
Date of Service June 22, 2022 Assessment & Plan (1) Lumbar disc herniation with radiculopathy: Plan: I spoke with Dr Farmer and his current [facility] [place] radiculopathy is due to a herniated disc at L5-S1 on the left side. He remains on dilaudid prn, oxycodone prn, and dexamethasone 4mg IV q8h. This regimen is helping but certainly not resolving the pain. Dr Farmer plans to perform L5-S1 decompression/fusion procedure tomorrow. He is NPO after MN. With respect to his cardiac risk perioperatively, using the revised Carlos criteria, his risk for a perioperative cardiac event is <5%. He has CAD risk factors (fam hx, high lipids, HTN) but [place] without any cardiopulmonary symptoms. Recommend EKG this evening along with 2-view cxr. Hold heparin SC starting in am. He appears slightly dry on exam and BUN is elevated (perhaps from steroids) thus cont IV fluids for now. Could consider addition of gabapentin if radicular, neuropathic pain continues. Recheck labs in am including INR. (2) Hypertension: Plan: Mildly elevated readings, likely due to pain and steroids. Cont amlodipine. Cont lisinopril today but hold starting in am to avoid perioperative BRADLEY. Aspirin is already on hold for #1 above. (3) Hyperlipidemia: Plan: Cont statin (4) Hypothyroidism (acquired): Plan: Cont synthroid Check TSH in am (5) Spinal stenosis of lumbar region: Plan: Mild-moderate stenosis at various lumbar levels on recent MRI l-spine Cont pain meds (6) Obesity (BMI 30-39.9): Plan: BMI 36 (7) DVT prophylaxis: Plan: Heparin SC has been employed since admission but place on hold starting with tomorrow am's dose (8) Abdominal hernia: Plan: moderate hernia around a previous incision (from appendectomy?) reducible I made Dr Farmer aware of this hernia No Rx needed at this time Plan updated at bedside care d/w Dr Farmer Admission and Anticipated Discharge Date Admission Date: June 21, 2022 Subjective patient resting in bed during the visit at bedside radicular pain in E continues - very severe patient reports that his father had "heart attack and in his 70s" there is no family h/o VTE patient is a espinoza -- still works and has no limiting dyspnea, SALAZAR or chest pain no known h/o CAD no h/o lung disease had hip replacement several years ago without incident Review of Systems Review of Systems: cv - no cp, no orthopnea pulm - no cough or dyspnea GI - no pain, nausea or emesis Physical Exam Physical Exam: gen - NAD, obese mouth - MM slightly dry neck - no JVD heart - RRR, s1 s2, 1/6 MAXINE RUSB and apex lungs - CTA b/l abd - soft, midline scar bottom half of abdomen; there is an incisional hernia - fairly large - at superior most portion of this scar; NT; ND; BS+; no HSM ext - no edema, pulses 2+ b/l psych - a/o x 3 Results & Data Results & Data Vital Signs (Past 12 Hours) Vital Signs Temp Pulse Resp BP Pulse Ox O2 Del Method 06/22/22 15:35 36.5 C 81 16 102/48 L 94 Room Air Laboratory Results Laboratory Results - last 48 hr 06/21/22 06/21/22 06/21/22 17:59 17:59 17:59 WBC 16.47 H RBC 5.33 Hgb 16.0 Hct 45.1 MCV 84.6 MCH 30.0 MCHC 35.5 RDW Std Deviation 44.4 RDW Coeff of Delvni 14.5 Plt Count 316 MPV 10.1 Immature Gran % (Auto) 2.1 Neut % (Auto) 78.6 Lymph % (Auto) 12.6 [place] % (Auto) 6.2 Eos % (Auto) 0.0 Baso % (Auto) 0.5 Neut # (Auto) 12.95 H Lymph # (Auto) 2.07 [place] # (Auto) 1.02 H Eos # (Auto) 0.00 Baso # (Auto) 0.09 Immature Gran # (Auto) 0.34 H ESR 11 Sodium 135 L Potassium 4.4 Chloride 105 Carbon Dioxide 21 Anion Gap 9 BUN 30 H Creatinine 0.95 Est Cr Clr Drug Dosing 81.1 Est GFR ( Amer) 93.6 Est GFR (Non-Af Amer) 80.8 BUN/Creatinine Ratio 31.6 H Glucose 151 H Calcium 9.3 Total Bilirubin 0.3 AST 20 ALT 33 Alkaline Phosphatase 60 C-Reactive Protein < 0.50 Total Protein 7.5 Albumin 4.3 Globulin 3.2 Albumin/Globulin Ratio 1.3 Urine Color Urine Appearance Urine pH Ur Specific [place] Urine Protein Urine Glucose (UA) Urine Ketones Urine Blood Urine Nitrite Urine Bilirubin Urine Urobilinogen Ur Leukocyte Esterase SARS-CoV-2, RNA, NAAT 06/21/22 06/22/22 20:29 Unknown WBC RBC Hgb Hct MCV MCH MCHC RDW Std Deviation RDW Coeff of Delvin Plt Count MPV Immature Gran % (Auto) Neut % (Auto) Lymph % (Auto) [place] % (Auto) Eos % (Auto) Baso % (Auto) Neut # (Auto) Lymph # (Auto) [place] # (Auto) Eos # (Auto) Baso # (Auto) Immature Gran # (Auto) ESR Sodium Potassium Chloride Carbon Dioxide Anion Gap BUN Creatinine Est Cr Clr Drug Dosing Est GFR ( Amer) Est GFR (Non-Af Amer) BUN/Creatinine Ratio Glucose Calcium Total Bilirubin AST ALT Alkaline Phosphatase C-Reactive Protein Total Protein Albumin Globulin Albumin/Globulin Ratio Urine Color Yellow Urine Appearance Clear Urine pH 5.0 Ur Specific [place] 1.030 Urine Protein Negative Urine Glucose (UA) Negative Urine Ketones Negative Urine Blood Negative Urine Nitrite Negative Urine Bilirubin Negative Urine Urobilinogen Negative Ur Leukocyte Esterase Negative SARS-CoV-2, RNA, NAAT NEGATIVE Diagnostic Findings CXR pending EKG pending PG Care Time/CCT Total # of Minutes Spent Total Time Spent with Patient: Total time spent is greater than 50% in coordination of care (as documented) at patient's floor/unit and/or counseling patient: Coding Level of Care Code 93999 SUB INP/OBS CARE 3/50MIN Diagnoses Lumbar disc herniation with radiculopathy M51.16 Hypertension I10 Hyperlipidemia E78.5 Hypothyroidism (acquired) E03.9 Spinal stenosis of lumbar region M48.061 Obesity (BMI 30-39.9) E66.9 DVT prophylaxis Z29.9 Abdominal hernia K46.9
[2022-06-22] MEDS: SIMVASTATIN 20 MG TAB PO SCH (22:33)
[2022-06-23] MEDS: LACTATED RINGER'S 1,000 ML IV SCH ×3 (00:08→20:45)
[2022-06-23] MEDS: dexAMETHasone 4 MG in SYRINGE 0 ML IV SCH ×3 (05:55→22:52)
[2022-06-23] MEDS: LEVOTHYROXINE SODIUM 50 MCG TABLET PO SCH (05:55)
[2022-06-23] MEDS ORDERED: MIDAZOLAM HCL 1 MG/ML 2ML VIAL ONE (06:57)
[2022-06-23] MEDS ORDERED: fentaNYL citrate PF 100 MCG/2 ML VIAL ONE ×2 (06:57→08:00)
[2022-06-23] MEDS ORDERED: BUPIVACAINE/EPINEPHRINE 0.25% 1:200,000 30 ML VIAL ONE (07:09)
[2022-06-23] MEDS ORDERED: ceFAZolin 330 MG/ML 1 GM VIAL ONE (07:09)
[2022-06-23] MEDS ORDERED: ONDANSETRON INJ 2 MG/ML 2 ML VIAL IV PRN ×2 (07:23→10:31)
[2022-06-23] MEDS ORDERED: PROMETHAZINE HCL 6.25 MG in SODIUM CHLORIDE 0.9% 50 ML IV PRN (07:23)
[2022-06-23] MEDS ORDERED: ATROPINE SULFATE 0.1 MG/ML 10ML SYR IV PRN (07:23)
[2022-06-23] MEDS ORDERED: ePHEDrine sulfate 50 MG/ML AMP IV PRN (07:23)
--- NOTE | 2022-06-23 07:23 | Anesthesiology Consultation ---
Date of Service June 23, 2022 Assessment & Plan Chart Review Chart Review: Acceptable Risk for Surgery and Patient NOT seen in Pre Admission Testing Consults Requested none ASA ASA2 Proposed Anesthesia Anesthesia Type: General Risk / Benefits Reviewed With: PT / POA / Parent / Guardian, Accepts Plan and Informed Consent Obtained History Surgery Operation Date: 06/23/22 07:45 Proposed Procedures p L5-S1 Decompression and Fusion, Spinal Cord Monitoring - Martin Farmer, Height/Weight Height: 5 ft 6 in Weight: 103.4 kg Allergies Allergy/AdvReac Type Severity Reaction Status Date / Time No Known Allergies Allergy Unverified 06/21/22 21:27 Medications Home Medications Medication Instructions Recorded Confirmed Last Taken oxycodone 5 mg tablet 5 mg PO Q6H PRN pain #12 tabs 06/16/22 06/21/22 Unknown amlodipine 5 mg tablet 5 mg PO QAM 06/21/22 06/21/22 Unknown aspirin 81 mg tablet,delayed 81 mg PO QAM 06/21/22 06/21/22 Unknown release levothyroxine 50 mcg tablet 50 mcg PO DAILYBB 06/21/22 06/21/22 Unknown (Synthroid) lisinopril 20 mg tablet 20 mg PO QAM 06/21/22 06/21/22 Unknown multivitamin 1 tab PO QAM 06/21/22 06/21/22 Unknown sildenafil 25 mg tablet 25 mg PO UD PRN Sexual Activity 06/21/22 06/21/22 Unknown simvastatin 20 mg tablet 20 mg PO HS 06/21/22 06/21/22 Unknown Active Medications Generic Name Dose Route Start Last Admin Trade Name Freq PRN Reason Stop Dose Admin Amlodipine Besylate 5 mg 06/22/22 09:00 06/22/22 08:28 Amlodipine Besylate 5 Mg Tab PO 07/22/22 08:59 5 mg QAM ABDIRASHID Administration Heparin Sodium (Porcine) 5,000 units 06/22/22 09:00 06/22/22 22:32 Heparin Sod 5,000 Unit/0.5 Ml Vial SQ 07/22/22 08:59 5,000 units Q12 ABDIRASHID Administration Hydromorphone HCl 1 mg 06/21/22 22:09 06/22/22 22:34 Hydromorphone Inj 1 Mg/Ml Syringe IV 07/05/22 22:08 1 mg Q4H PRN Administration Pain Lactated Ringer's 1,000 mls @ 80 mls/hr 06/21/22 22:09 06/23/22 00:08 Lr IV 07/21/22 22:08 80 mls/hr .[id number] ABDIRASHID Administration Dexamethasone 4 mg/ Syringe 1 mls @ 1 mls/min 06/22/22 07:00 06/23/22 05:55 IV 07/22/22 06:59 1 mls/min Q8H ABDIRASHID Administration Levothyroxine Sodium 50 mcg 06/22/22 06:30 06/23/22 05:55 Levothyroxine Sodium 50 Mcg Tablet PO 07/22/22 06:29 50 mcg DAILYBB ABDIRASHID Administration Lisinopril 20 mg 06/22/22 09:00 06/22/22 08:28 Lisinopril 20 Mg Tab PO 07/22/22 08:59 20 mg QAM ABDIRASHID Administration Multivitamins 1 tab 06/22/22 09:00 06/22/22 08:28 Multivitamin Tab PO 07/22/22 08:59 1 tab QAM ABDIRASHID Administration Oxycodone HCl 5 mg 06/21/22 22:09 06/22/22 12:34 Oxycodone Hcl Ir 5 Mg Tab (Immediate Release) PO 07/05/22 22:08 5 mg Q4H PRN Administration Moderate Pain (Scale 4, 5, 6) Polyethylene Glycol 17 gm 06/22/22 13:15 06/22/22 14:47 Polyethylene (Miralax) 17 Gm Pack PO 07/22/22 13:14 17 gm DAILY ABDIRASHID Administration Sennosides 17.2 mg 06/22/22 13:15 06/22/22 14:49 Senna 8.6 Mg Tab PO 07/22/22 13:14 17.2 mg QAM ABDIRASHID Administration Simvastatin 20 mg 06/22/22 21:00 06/22/22 22:33 Simvastatin 20 Mg Tab PO 07/22/22 20:59 20 mg HS ABDIRASHID Administration NPO Date Last Intake of Fluids: 06/23/22 Time Last Intake of Fluids: 05:30 Date Last Intake of Solids: 06/22/22 Time Last Intake of Solids: 17:30 Past Medical History Medical History (Updated 06/23/22 @ 05:45 by Vladimir Suh MD) Erectile dysfunction Hyperlipidemia Hypertension Hypothyroidism (acquired) Spinal stenosis of lumbar region Exercise / Class Metabolic Activity II 4-5 Yardwork/Stairs/Walk up hill Past Surgical History Surgical History No pertinent past surgical history Past Anesthesia History No Hx of Anesthesia Complications and No Family Hx of Anesthesia Complications History of PONV No Hx of PONV and No Hx of Motion Sickness Social History Smoking Status: Never smoker Do You Dip or Chew Tobacco: No Hx Alcohol Use: No Hx Substance Use: No Physical Exam Vital Signs Last Vital Signs Temp 36.9 C 06/23/22 07:11 Pulse 75 06/23/22 07:11 Resp 20 06/23/22 07:11 BP 175/92 H 06/23/22 07:11 Pulse Ox 95 06/23/22 07:11 O2 Del Method Room Air 06/23/22 07:11 ENMT Mouth: no dentition abnormality Thyromental Distance: > or= 3.5 Finger Breadths Mallampati Class: II Neck normal visual inspection Respiratory normal respiratory effort Auscultation: lungs clear to auscultation bilaterally Cardiovascular Rate/Rhythm: regular rate and regular rhythm Psychiatric Orientation: alert Testing Laboratory Results 06/21/22 17:59 06/21/22 17:59 Urine Color Yellow 06/22/22 Unknown Urine Appearance Clear (Clear) 06/22/22 Unknown Urine pH 5.0 (4.5-7.5) 06/22/22 Unknown Ur Specific Julian 1.030 (1.000-1.030) 06/22/22 Unknown Urine Protein Negative (Negative) 06/22/22 Unknown Urine Glucose (UA) Negative (Negative) 06/22/22 Unknown Urine Ketones Negative (Negative) 06/22/22 Unknown Urine Nitrite Negative (Negative) 06/22/22 Unknown Ur Leukocyte Esterase Negative (Negative) 06/22/22 Unknown
--- NOTE | 2022-06-23 07:26 | History & Physical Bridge Note ---
Date of Service June 23, 2022 History & Physical Bridge Note I have examined the patient, reviewed the History & Physical and in the interval since the performance of the History & Physical I have noted the following changes of clinical significance: Patient has progressive neurologic decline with motor deficit affecting the left lower extremity. Is requiring IV narcotics failed IV steroids to provide any pain improvement and recommending emergent decompression fusion to avoid permanent nerve damage..
[2022-06-23 07:47] LABS: Basophils # (auto) 0.05 K/uL (0-0.2); Basophils % (auto) 0.2 %; Eosinophils # (auto) 0.01 K/uL (0-0.50); Hemoglobin 14.8 g/dl (14.0-18.0); Immature Granulocytes # (auto) 0.43 K/uL (0.01-0.20); Immature Granulocytes % (auto) 1.8 %; Lymphocytes # (auto) 1.98 K/uL (1.2-3.4); Lymphocytes % (auto) 8.4 %; Mean Corpuscular Hgb Conc 34.4 g/dL (32.0-36.0); Mean Platelet Volume 10.1 fL (9.4-12.4); Monocytes % (auto) 5.1 %; Neutrophils # (auto) 19.93 K/uL (1.40-6.50); Neutrophils % (auto) 84.5 %; Platelet Count 304 K/uL (130-400); RDW Coefficient of Variation 14.5 % (11.5-14.5); RDW Standard Deviation 46.3 fL (36.4-46.3); Red Blood Count 4.94 M/uL (4.70-6.10)
[2022-06-23 08:04] LABS: Albumin Globulin Ratio 1.4 (0.9-2); Bilirubin,Total 0.5 mg/dl (0.2-1.0); Calcium 9.3 mg/dl (8.6-10.3); Est GFR (African American) 100.4 ml/min; Est GFR (Non-African American) 86.6 ml/min; Globulin 2.9 gm/dl (2.5-4.0); Magnesium 1.9 mg/dl (1.7-2.4); Potassium 4.4 mmol/L (3.5-5.1); Total Protein 6.9 gm/dl (6.0-8.3)
[2022-06-23 08:08] LABS: Prothrombin Time 11.3 Seconds (9.0-12.0)
[2022-06-23 08:11] LABS: Estimated Average Glucose 128 mg/dl; Hemoglobin A1C 6.1 % (4.5-5.6)
[2022-06-23] MEDS ORDERED: ONDANSETRON INJ 2 MG/ML 2 ML VIAL ONE (08:11)
[2022-06-23] MEDS ORDERED: PROPOFOL IV EMULSION 10 MG/ML 20 ML VIAL IV ONE ×2 (08:11→08:57)
[2022-06-23] MEDS ORDERED: ROCURONIUM BROMIDE 10 MG/ML 5 ML VIAL IV ONE ×3 (08:11→09:03)
[2022-06-23] MEDS ORDERED: FLOSEAL HEMOSTATIC MATRIX 10ML TOP ONE (08:33)
--- NOTE | 2022-06-23 08:33 | XRay Report ---
XR chest 2V PA/lateral CLINICAL HISTORY: pre-op for lumbar back surgery TECHNIQUE: 2 views of the chest were obtained. Comparison: Comparison is made to chest radiograph 06/07/2010 FINDINGS: No lines and tubes are seen. Calcified aortic knob is seen. The lungs are clear. No evidence of pleur al effusion or pneumothorax. IMPRESSION: No acute chest disease. ACT 112: Negative or not required by law. Electronically signed by: Jere Liu M.D. 06/23/2022 8:32 AM
[2022-06-23] MEDS ORDERED: LABETALOL HCL IV 5 MG/ML 20ML IV ONE (08:36)
[2022-06-23] MEDS ORDERED: SUGAMMADEX SODIUM 200 MG/2 ML VIAL IV ONE (09:25)
--- NOTE | 2022-06-23 09:33 | Operative Report ---
Post Operative Report Pre & Post Diagnosis Operation Date: 06/23/22 07:45 Pre-Op Diagnosis: Lumbar disc herniation with radiculopathy Obesity Post-Op Diagnosis: Same I identified the patient and participated in the time-out.: Yes Procedure Operation Date: 06/23/22 07:45 Actual Procedures #1 lumbar impression bilateral facetectomies and foraminotomies L4-5 L5-S1 per #2 posterior spinal fusion L5-S1. #3 placed posterior instrumentation L5-S1. #4 interbody fusion L5-S1. #5 placement of Spira 14 x 26 mm cage L5-S1. #6 placement locally harvested morselized autograft in the posterior gutters. #7 placement of I factor amount of the test interbody space and posterior lateral gutters. Surgeon Martin Farmer, Trade Specialist Irina Connors Estimated Blood Loss 200 Findings See Below Patient is 5 foot 6 weighing over 103 kg with a BMI in excess of 36. Patient's body habitus did contribute to significant technical difficulty required deepest retractors longer instruments in order to perform her procedure. This at least 50% increased operative time. Specimens None Indications This is a 72-year-old male who presents with evidence of foraminal disc herniation and gross neurologic decline is here for emergent decompression fusion. Description of Procedure Patient was met with identified informed consent obtained. Patient was then taken to the operative suite underwent a patient placed in a prone position on Suleiman table top Sachin frame. All bony promises well-padded eyes inspected to ensure no external pressure placed upon. This point the lumbar spine was prepped and draped in a sterile fashion. Sharp dissection with the assistance of Bovie cautery performed down to and exposing the lamina and transverse processes of L5 and the sacral ala bilaterally. From caudal to cephalad fashion complete laminectomy L5 partial laminectomy of L4 was performed including bilateral medial facetectomies and foraminotomies. I did perform a complete facetectomy L5-S1 left to expose evidence of massive foraminal disc herniation on the left and severe encroachment of the exiting root. After removal of all fragments pedicle screws were placed in L5 and S1 levels bilaterally with assistance of fluoroscopy and appropriate sized tanya placed. By way of a transforaminal approach and left complete discectomy was performed endplates curetted to subcortically bone and a 14 x 26 mm Spira cage with I factor tapped in position. The rods then locked in final position bilaterally. The transverse processes of L5 and the sacral ala burred to subcortically bone. I factor bone of the test and locally harvested morselized autograft placed in the posterior gutters. 15 round RADHA drain inserted. The incision was then closed with 1 Vicryl to fascia 2-0 Vicryl subcutaneously and 4 Monocryl for final skin closure. Steri-Strips sterile dressings placed. Patient waken taken to PACU in stable condition. Please note spinal cord monitoring was utilized at the procedure no changes noted. Lastly Irina Connors was present out the entire surgery involved in patient positioning complex portion of the surgery and final skin closure. I attest to the content of the Intraoperative Record and any orders documented therein. Any exceptions are noted below.
[2022-06-23] MEDS: fentaNYL citrate PF 100 MCG/2 ML VIAL IV PRN ×2 (09:59→10:04)
--- NOTE | 2022-06-23 10:24 | Anesthesiology Progress Note ---
Date of Service June 23, 2022 Anesthesia Post Procedure Vital Signs Vital Signs: Temp Pulse Pulse Resp BP Pulse Ox O2 Del Method 06/23/22 09:55 74 12 136/72 95 Oxymask 06/23/22 10:15 36 C L 68 20 144/84 H 95 Nasal Cannula 06/23/22 10:05 71 17 139/68 92 Nasal Cannula 06/23/22 09:45 36.1 C L 84 16 140/80 94 Oxymask 06/23/22 07:11 36.9 C 75 20 175/92 H 95 Room Air 06/22/22 22:54 36.7 C 80 18 164/69 H 96 Room Air 06/22/22 15:35 36.5 C 81 16 102/48 L 94 Room Air O2 Flow Rate 06/23/22 09:55 5 06/23/22 10:15 3 06/23/22 10:05 2 06/23/22 09:45 5 06/23/22 07:11 06/22/22 22:54 06/22/22 15:35 Pain Intensity Left Hip: Pain Intensity: 5 Back: Pain Intensity: 4 Transfer of Care Handoff Completed per policy Notes Mental Status: alert / awake / arousable Patient Amnestic to Procedure: Yes Nausea / Vomiting: adequately controlled Pain: adequately controlled Airway Patency, RR, SpO2: stable & adequate BP & HR: stable & adequate Hydration State: stable & adequate Anesthetic Complications: no major complications apparent
--- NOTE | 2022-06-23 10:30 | Fluoroscopy Report ---
FL lumbar spine 2-3V CLINICAL HISTORY: L5-S1 DECOMP AND FUSION COMPARISON STUDY: Lumbar spine MRI 06/21/2022 FLUOROSCOPY TIME: 33.2 seconds FLUOROSCOPY IMAGES: 2 EXPOSURE DOSE: 30.70 mGy FINDINGS: Posterior bilateral tanya and screw fusion with discectomy at L5-S1. Hardware appears intact. Radiopaque sponge with an additional screw projects over the presacral tissues, possibly external to the patient. IMPRESSION: Fluoroscopic assistance as above. ACT 112: Negative or not required by law. Electronically signed by: Cooper Bella M.D. 06/23/2022 10:28 AM
[2022-06-23] MEDS ORDERED: traMADol HCL 50 MG TABLET PO PRN (10:31)
[2022-06-23] MEDS ORDERED: LORazepam 0.5 MG TAB PO PRN (10:31)
[2022-06-23] MEDS ORDERED: SOD PHOSPHATE/SOD BIPHOSPHATE ENEMA 132 ML BTL PR PRN (10:31)
[2022-06-23] MEDS ORDERED: bisacodyL 10 MG SUPP PR PRN (10:31)
[2022-06-23] MEDS ORDERED: PHARMACY GLYCEMIC MGMT CONSULT PRN (10:31)
[2022-06-23] MEDS ORDERED: ACETAMINOPHEN 1,000 MG/100 ML VIAL IV PRN (10:31)
[2022-06-23] MEDS ORDERED: HYDROmorphone INJ 0.5 MG/0.5 ML SYR IV PRN (10:31)
[2022-06-23] MEDS ORDERED: DO NOT ADMINISTER FLU VACCINE PRN (10:31)
[2022-06-23] MEDS ORDERED: MAGNESIUM HYDROXIDE SUSP 30 ML UDC PO PRN (10:31)
[2022-06-23] MEDS ORDERED: PROMETHAZINE HCL 12.5 MG in SODIUM CHLORIDE 0.9% 50 ML IV PRN (10:31)
[2022-06-23] MEDS ORDERED: HYDROmorphone INJ 1 MG/ML SYRINGE IV PRN (10:31)
[2022-06-23] MEDS ORDERED: ONDANSETRON 4 MG OD TAB PO PRN (10:31)
[2022-06-23] MEDS ORDERED: NALOXONE HCL 0.4 MG/1 ML VIAL/CARP IV PRN (10:31)
[2022-06-23] MEDS ORDERED: hydrOXYzine HCl 25 MG TAB PO PRN (10:31)
[2022-06-23] MEDS ORDERED: DO NOT ADMINISTER PNEUMOCOCCAL VACCINE PRN (10:31)
[2022-06-23] MEDS ORDERED: ACETAMINOPHEN 500 MG TAB PO PRN (10:31)
[2022-06-23] MEDS ORDERED: LORazepam 2 MG/1 ML VIAL IV PRN (10:31)
[2022-06-23] MEDS ORDERED: FAMOTIDINE 20 MG TAB PO PRN (10:31)
[2022-06-23] MEDS ORDERED: ALUMINUM/MAGNESIUM SUSP 30 ML UDC PO PRN (10:31)
[2022-06-23] MEDS ORDERED: METOCLOPRAMIDE HCL INJ 5 MG/ML 2 ML VIAL IV PRN (10:31)
[2022-06-23] MEDS ORDERED: diphenhydrAMINE Capsule 25 MG CAP PO PRN (10:31)
--- NOTE | 2022-06-23 10:34 | Electrocardiogram Report ---
Test Reason : Blood Pressure : / mmHG Vent. Rate : 080 BPM Atrial Rate : 080 BPM P-R Int : 166 ms QRS Dur : 082 ms QT Int : 382 ms P-R-T Axes : 048 039 001 degrees QTc Int : 440 ms Poor data quality, interpretation may be adversely affected Normal sinus rhythm Normal ECG When compared with ECG of 28-MAY-2010 10:07, No significant change was found Confirmed by Joseph Dave ([id number]) on 06/23/2022 10:34:24 AM Referred By: REFERRED SELF Confirmed By:Wilfrid Dave
[2022-06-23] MEDS ORDERED: DEXTROSE 50% 50 ML SYRINGE IV PRN (11:30)
[2022-06-23] MEDS ORDERED: GLUCAGON FOR INJ 1 MG VIAL IM PRN (11:30)
[2022-06-23] MEDS ORDERED: GLUCOSE 40% GEL 15 GM TUBE PO PRN (11:30)
[2022-06-23] MEDS ORDERED: GLUCOSE 10 TAB/TUBE PO PRN (11:30)
[2022-06-23] MEDS ORDERED: CARBOHYDRATES FOR HYPOGLYCEMIA PO PRN (11:30)
--- NOTE | 2022-06-23 11:31 | Pharmacy Report ---
Pharmacy Glycemic Short Note 2 - Date of Service June 23, 2022 - Glycemic Short BSG Results (Last 24 hours): 06/23/22 07:28 Glucose 118 H OUTPATIENT ANTIDIABETIC REGIMEN: * None * HbA1c: 6.1% (06/23/22) ASSESSMENT: * 72 yo M admitted on 06/21/22 secondary to intractable back pain and is now POD #0 following a L5-S1 decompression and fusion. Pharmacy has been consulted to assist with inpatient glycemic management. Patient is pre-diabetic on no antidiabetic medications at home. * BSG this AM was 118 mg/dL. Patient is on Dexamethasone 4 mg IV every 8 hours which continues postoperatively. Ordered a clear liquid diet. Will follow this afternoon to see if tolerating diet. * Start with Novolog based on weight/stress of 2.5. Will add overnight checks for first night. Holding basal insulin today. Reassess basal needs in the AM. PLAN FOR INPATIENT GLYCEMIC CONTROL: * Basal insulin * None * Bolus insulin * NovoLog per scale ACHS or Q6hrs while NPO * Goal Range: Low 110 mg/dL - High 140 mg/dL * Correction Factor: 20 mg/dL/unit * Nutritional / Prandial insulin per carb ratio of 1 unit per 7 grams CHO consumed
[2022-06-23] MEDS: POLYETHYLENE (MIRALAX) 17 GM PACK PO SCH (12:54)
[2022-06-23] MEDS: MULTIVITAMIN TAB PO SCH (12:55)
[2022-06-23] MEDS: amLODIPine BESYLATE 5 MG TAB PO SCH (12:55)
[2022-06-23] MEDS: SENNA 8.6 MG TAB PO SCH (12:55)
[2022-06-23] MEDS: INSULIN ASPART PER UNIT CHARGE SC SCH ×3 (12:56→21:00)
[2022-06-23] MEDS: oxyCODONE HCL IR 5 MG TAB (IMMEDIATE RELEASE) PO PRN (12:59)
--- NOTE | 2022-06-23 14:14 | Hospitalist Progress Note ---
Date of Service June 23, 2022 Assessment & Plan (1) Lumbar disc herniation with radiculopathy: Plan: Presented with LLE radiculopathy due to a herniated disc at L5-S1 on the left side. Txd with dilaudid prn, oxycodone prn, and dexamethasone 4mg IV q8h. This regimen is helping but was not resolving the pain. Now s/p L5-S1 decompression/fusion procedure on 06/23 Could consider addition of gabapentin if radicular, neuropathic pain continues. -follow BMP, CBC in AM -continue pain control, bowel regimen -Ortho post-op management as per Dr. Farmer (2) Hypertension: Plan: Mildly elevated readings, likely due to pain and steroids. Cont amlodipine. holding lisinopril to avoid perioperative BRADLEY. Aspirin is already on hold for #1 above-restart in 48 hours (3) Hyperlipidemia: Plan: Cont statin (4) Hypothyroidism (acquired): Plan: Cont synthroid TSH here normal (5) Spinal stenosis of lumbar region: Plan: Mild-moderate stenosis at various lumbar levels on recent MRI l-spine Cont pain meds (6) Obesity (BMI 30-39.9): Plan: BMI 36 (7) DVT prophylaxis: Plan: Heparin SC now on hold for surgery (8) Abdominal hernia: Plan: moderate hernia around a previous incision (from appendectomy?) reducible No Rx needed at this time Plan updated at bedside Dispo-continued stay for recovery from back surgeyr, likely dc to home in 2 days Admission and Anticipated Discharge Date Admission Date: June 21, 2022 Subjective Had surgery on back this AM, has some pain at site of surgery but otherwise feels fine. No CP, SOB< nausea. No pain down legs, No abd pain, last BM this AM Physical Exam Constitutional: WD/WN, vitals as above Respiratory: normal respiratory effort, lungs clear to auscultation Cardiovascular: RRR, no murmur, no edema Gastrointestinal (Abdomen): Inspection/Auscultation: normal bowel sounds and + visible herniation (reducible); + abdomen abnormal to inspection (midline ex lap scar) Percussion/Palpation: abdomen soft; abdomen nontender Psychiatric: A+Ox3, euthymic affect Results & Data Results & Data Vital Signs (Past 12 Hours) Vital Signs Temp Pulse Pulse Resp BP Pulse Ox O2 Del Method 06/23/22 13:22 36.5 C 69 16 146/75 H 93 Nasal Cannula 06/23/22 11:26 36.8 C 66 16 149/76 H 93 Nasal Cannula 06/23/22 12:28 36.4 C L 66 18 119/69 95 Nasal Cannula 06/23/22 10:58 36.4 C L 66 16 131/73 94 Nasal Cannula 06/23/22 10:32 36.4 C L 67 18 138/76 93 Nasal Cannula 06/23/22 09:55 74 12 136/72 95 Oxymask 06/23/22 10:15 36 C L 68 20 144/84 H 95 Nasal Cannula 06/23/22 10:05 71 17 139/68 92 Nasal Cannula 06/23/22 09:45 36.1 C L 84 16 140/80 94 Oxymask 06/23/22 07:11 36.9 C 75 20 175/92 H 95 Room Air O2 Flow Rate 06/23/22 13:22 1 06/23/22 11:26 2 06/23/22 12:28 2 06/23/22 10:58 2 06/23/22 10:32 2 06/23/22 09:55 5 06/23/22 10:15 3 06/23/22 10:05 2 06/23/22 09:45 5 06/23/22 07:11 Laboratory Results CBC, CMP, HgbA1C, and TSH reviewed PG Care Time/CCT Total # of Minutes Spent Total Time Spent with Patient: Total time spent is greater than 50% in coordination of care (as documented) at patient's floor/unit and/or counseling patient: Coding Level of Care Code 20719 SUB INP/OBS CARE 2/35MIN Diagnoses Lumbar disc herniation with radiculopathy M51.16 Hypertension I10 Hyperlipidemia E78.5 Hypothyroidism (acquired) E03.9 Spinal stenosis of lumbar region M48.061 Obesity (BMI 30-39.9) E66.9 DVT prophylaxis Z29.9 Abdominal hernia K46.9
[2022-06-23] MEDS: ceFAZolin 2000MG 2,000 MG/15 ML SYR IV SCH ×2 (16:29→22:52)
[2022-06-23] MEDS: SIMVASTATIN 20 MG TAB PO SCH (20:43)
[2022-06-23] MEDS: DOCUSATE SODIUM/SENNA 50/8.6MG TAB PO SCH (20:43)
[2022-06-24] MEDS: INSULIN ASPART PER UNIT CHARGE SC SCH ×6 (00:27→21:06)
[2022-06-24] MEDS: LEVOTHYROXINE SODIUM 50 MCG TABLET PO SCH (05:59)
[2022-06-24] MEDS: dexAMETHasone 4 MG in SYRINGE 0 ML IV SCH ×2 (05:59→14:30)
[2022-06-24] MEDS: POLYETHYLENE (MIRALAX) 17 GM PACK PO SCH ×4 (06:00→23:16)
[2022-06-24] MEDS: oxyCODONE HCL IR 5 MG TAB (IMMEDIATE RELEASE) PO PRN ×3 (06:01→20:58)
--- NOTE | 2022-06-24 08:45 | Orthopedic Progress Note ---
Date of Service June 24, 2022 Assessment & Plan (1) Lumbar disc herniation with radiculopathy: Plan: Jayy is postoperative day 1 status post TLIF L5-S1. He is doing great. We will start physical therapy today. Ambulate ad hanny. Maintain RADHA drain and dressing. DVT prophylaxis is in the form of teds and SCDs. Continue with aggressive bowel regimen. Anticipate discharge home within the next 24 to 48 hours. Admission and Anticipated Discharge Date Admission Date: June 21, 2022 Subjective Jayy is postoperative day 1 status post TLIF L5-S1. Leg pain is resolved. He had an uneventful evening. RADHA drain output last shift was 50 cc. He has been up and ambulatory around the hallways and to the restroom. Voiding without issue. Review of Systems Review of Systems: All systems reviewed & are unremarkable except as noted in HPI & below Physical Exam Physical Exam: He is lying in bed in no acute distress Alert and oriented x3 Lumbar dressing is clean dry and intact with functioning RADHA drain Calf soft and nontender bilaterally Strength intact bilateral lower extremities Results & Data Vital Signs (Past 12 Hours) Vital Signs Temp Pulse Resp BP BP Pulse Ox O2 Del Method 06/24/22 07:44 36.7 C 64 16 130/71 96 Room Air 06/24/22 04:00 36.8 C 70 16 146/79 H 96 Room Air 06/23/22 23:43 36.8 C 73 16 123/70 95 Room Air
[2022-06-24] MEDS: SENNA 8.6 MG TAB PO SCH (09:00)
[2022-06-24] MEDS: amLODIPine BESYLATE 5 MG TAB PO SCH (09:00)
[2022-06-24] MEDS: MULTIVITAMIN TAB PO SCH (09:00)
[2022-06-24 09:17] LABS: Basophils # (auto) 0.05 K/uL (0-0.2); Basophils % (auto) 0.2 %; Hematocrit (blood only) 40.8 % (42.0-52.0); Hemoglobin 13.9 g/dl (14.0-18.0); Immature Granulocytes # (auto) 0.63 K/uL (0.01-0.20); Immature Granulocytes % (auto) 2.7 %; Lymphocytes # (auto) 1.72 K/uL (1.2-3.4); Lymphocytes % (auto) 7.4 %; Mean Corpuscular Hgb Conc 34.1 g/dL (32.0-36.0); Mean Corpuscular Volume 87.9 fL (80.0-100.0); Mean Platelet Volume 10.6 fL (9.4-12.4); Monocytes # (auto) 2.07 K/uL (0.11-0.59); Monocytes % (auto) 8.9 %; Neutrophils % (auto) 80.8 %; Platelet Count 302 K/uL (130-400); RDW Coefficient of Variation 14.7 % (11.5-14.5); Red Blood Count 4.64 M/uL (4.70-6.10); White Blood Count 23.27 K/ul (4.8-10.8)
[2022-06-24 09:31] LABS: Albumin Globulin Ratio 1.4 (0.9-2); Albumin Level 3.9 gm/dl (3.4-5.0); BUN Creatinine Ratio 34.1 (10-20); Bilirubin,Total 0.5 mg/dl (0.2-1.0); Calcium 9.3 mg/dl (8.6-10.3); Creatinine Clr Calc Pharmacy 91.1 ml/min; Est GFR (African American) 102.3 ml/min; Est GFR (Non-African American) 88.3 ml/min; Globulin 2.7 gm/dl (2.5-4.0); Potassium 4.4 mmol/L (3.5-5.1); Total Protein 6.6 gm/dl (6.0-8.3)
--- NOTE | 2022-06-24 17:51 | Hospitalist Progress Note ---
Date of Service June 24, 2022 Assessment & Plan (1) Lumbar disc herniation with radiculopathy: Plan: Presented with LLE radiculopathy due to a herniated disc at L5-S1 on the left side. Txd with dilaudid prn, oxycodone prn, and dexamethasone 4mg IV q8h. This regimen was helping but was not resolving the pain. Now s/p L5-S1 decompression/fusion procedure on 06/23 Improved, RADHA drain in place, hgb minimal drop Ambulating -continue pain control, bowel regimen -follow BMP, CBC in AM -Ortho post-op management as per Dr. Farmer -dc IV decadron (2) Hypertension: Plan: BPs controlled Cont amlodipine. holding lisinopril to avoid perioperative BRADLEY. Aspirin is already on hold for #1 above-restart in 48 hours-hopefully tomorrow (3) Hyperlipidemia: Plan: Cont statin (4) Hypothyroidism (acquired): Plan: Cont synthroid TSH here normal (5) Spinal stenosis of lumbar region: Plan: Mild-moderate stenosis at various lumbar levels on recent MRI l-spine Cont pain meds (6) Obesity (BMI 30-39.9): Plan: BMI 36 (7) DVT prophylaxis: Plan: Heparin SC now on hold for surgery (8) Abdominal hernia: Plan: moderate hernia around a previous incision (from appendectomy?) reducible No Rx needed at this time Plan updated at bedside Dispo-continued stay for recovery from back surgeyr, likely dc to home in 1-2 days Admission and Anticipated Discharge Date Admission Date: June 21, 2022 Subjective Pt had some pain down LLE today after walking. Improved with pain meds. No BM today, is eating. Denies CP, SOB, lightheadedness, nausea. Physical Exam Constitutional: WD/WN, vitals as above Respiratory: normal respiratory effort, lungs clear to auscultation Cardiovascular: RRR, no murmur, no edema Psychiatric: A+Ox3, euthymic affect Results & Data Results & Data Vital Signs (Past 12 Hours) Vital Signs Temp Pulse Resp BP Pulse Ox O2 Del Method 06/24/22 15:28 36.8 C 76 16 138/74 93 Room Air 06/24/22 11:19 36.7 C 79 16 120/73 92 Room Air 06/24/22 07:44 36.7 C 64 16 130/71 96 Room Air Laboratory Results CBC, BMP reviewed PG Care Time/CCT Total # of Minutes Spent Total Time Spent with Patient: Total time spent is greater than 50% in coordination of care (as documented) at patient's floor/unit and/or counseling patient: Coding Level of Care Code 09285 SUB INP/OBS CARE 03/04MIN Diagnoses Lumbar disc herniation with radiculopathy M51.16 Hypertension I10 Hyperlipidemia E78.5 Hypothyroidism (acquired) E03.9 Spinal stenosis of lumbar region M48.061 Obesity (BMI 30-39.9) E66.9 DVT prophylaxis Z29.9 Abdominal hernia K46.9
[2022-06-24] MEDS: SIMVASTATIN 20 MG TAB PO SCH (20:57)
[2022-06-24] MEDS: DOCUSATE SODIUM/SENNA 50/8.6MG TAB PO SCH (20:58)
[2022-06-25] MEDS: POLYETHYLENE (MIRALAX) 17 GM PACK PO SCH (06:03)
[2022-06-25] MEDS: LEVOTHYROXINE SODIUM 50 MCG TABLET PO SCH (06:03)
[2022-06-25 08:08] LABS: Basophils # (auto) 0.06 K/uL (0-0.2); Basophils % (auto) 0.3 %; Hematocrit (blood only) 38.3 % (42.0-52.0); Hemoglobin 13.1 g/dl (14.0-18.0); Immature Granulocytes # (auto) 0.76 K/uL (0.01-0.20); Immature Granulocytes % (auto) 3.5 %; Lymphocytes # (auto) 2.89 K/uL (1.2-3.4); Lymphocytes % (auto) 13.4 %; Mean Corpuscular Hemoglobin 29.7 pg (25.0-34.0); Mean Corpuscular Hgb Conc 34.2 g/dL (32.0-36.0); Mean Corpuscular Volume 86.8 fL (80.0-100.0); Mean Platelet Volume 10.2 fL (9.4-12.4); Monocytes # (auto) 2.16 K/uL (0.11-0.59); Neutrophils # (auto) 15.77 K/uL (1.40-6.50); Neutrophils % (auto) 72.8 %; Platelet Count 251 K/uL (130-400); RDW Coefficient of Variation 14.4 % (11.5-14.5); RDW Standard Deviation 45.8 fL (36.4-46.3); Red Blood Count 4.41 M/uL (4.70-6.10); White Blood Count 21.64 K/ul (4.8-10.8)
[2022-06-25 08:25] LABS: BUN Creatinine Ratio 38.5 (10-20); Creatinine Clr Calc Pharmacy 99.3 ml/min; Est GFR (Non-African American) 91.5 ml/min; Potassium 4.3 mmol/L (3.5-5.1)
--- NOTE | 2022-06-25 08:33 | Discharge Summary ---
Date of Service June 25, 2022 Admission HPI Per Admitting Provider The patient is a 72-year-old espinoza with a past medical history including hypertension, hypothyroidism, ED, hyperlipidemia and lumbar degenerative disc disease with left lower extremity radiculopathy. He has been undergoing recent treatment, with having had injections at [facility] recently, which she reports helped the right side, but did not help the left side. He was to have a follow-up appointment later this week at their office, but due to severe pain, presented ED for assessment. MRI performed shows multilevel degenerative disc disease, and after no significant improvement with Toradol, dexamethasone, Dilaudid, Zofran, the ED discussed with orthopedic spine surgery Dr. Farmer, and asked that the patient be admitted to the medical service Principal Diagnosis Lumbar disc condition with radiculopathy and progressive deficits Discharge Data Allergies Allergy/AdvReac Type Severity Reaction Status Date / Time No Known Allergies Allergy Unverified 06/21/22 21:27 Consultations 06/21/22 20:46 ED Decision to Admit Stat 06/21/22 21:48 Consult Orthopedic Surgery Routine Procedures Performed Operation Date: 06/23/22 07:45 Actual Procedures p L5-S1 Decompression and Fusion with Spinal Cord Monitoring(Not Applicable) - Martin Farmer DO Ordered Studies 06/21/22 17:51 MRI Lumbar Spine [MR lumbar spine wo con] Stat 06/23/22 [place] lumbar spine 2-3V Routine Hospital Course (1) Lumbar disc herniation with radiculopathy: Patient was admitted with severe radiculopathy weakness inability ambulate underwent emergent decompression fusion tolerated as well as taken to orthopedic for postoperative. Postop day 1 is up and ambulating. Postop day #2.. RADHA drain decreasing probably. Excellent strength testing. Pain well controlled. Simply discharged home. Discharge orders instructions found in chart for further review. Total Time Total Time Spent Total Time Spent (In Minutes): 20 minutes Discharge Plan Discharge Items Patient Disposition: Home - Self-Care Reason For Visit: SEVER LBP, LDDD, LLE RADICULOPATHY Discharge Diagnosis: Lumbar disc herniation with radiculopathy Activity: As commented below Non-emergency contact: Primary Care Provider Call non-emergency contact if: you have any medication questions Follow-up/Referrals: Brian Ulloa [Primary Care Provider] - Diet: Regular Addtl Attending Provider Instructions: ACTIVITY RECOMMENDATIONS: SELF CARE INSTRUCTIONS AFTER THORACIC/LUMBAR FUSIONS 1. You may walk to your tolerance. It is good exercise for your legs and back. Expect some back and intermittent leg aches and pains. 2. You may perform "counter-top" level activities (make a sandwich, joe with a project, etc.). 3. No bending or lifting of more than 10 pounds or back twisting of any nature (roll like a log when turning in bed). 4. You may ride in a car for 20-30 minutes at a time. No driving until after your first visit with your doctor. 5. Frequent changes of position and restricting sitting to 30 minutes at a time will help limit the amount of back spasms and stiffness you may experience. 6. You may discontinue the use of ambulatory aids (cane, crutches, etc.) once your strength and confidence allow. 7. You may mineral economist the shower and let water strike your incision when you arrive home at least once daily. Do not take a tub bath, sit in a hot tub or go into a swimming pool until after your first recheck in the office. SPECIAL CARE INSTRUCTIONS: VERY IMPORTANT TO READ AND REVIEW A. Your surgical incision has been closed with a cosmetic suture under the skin that will dissolve in about 6 weeks. In 14 days, you can use a pair of clean scissors and cut the suture that is left outside of the skin at the ends of your incision. 1. The small skin tapes can be removed 7 days after surgery if they have not fallen off by that point. 2. You may keep the wound open to air as much as possible to promote healing after post-op day number 5 unless told otherwise by your doctor. 3. If you think the wound looks like it is becoming infected (redness or worsening drainage) and/or you are experiencing fever, chill or worsening back pain and muscle spasms, contact the office so that we may evaluate you as soon as possible. B. Complications are uncommon, but please contact us if you have any signs or symptoms of: 1. wound infection (fever higher than 102.5 degrees F, redness, separation of wound, drainage, or increasing pain from the incision) 2. blood clots in legs (pain, swelling, redness and warmth in legs) 3. urinary tract infection (fever higher than 102.5 degrees F, burning upon urination or increased frequency of urination) 4. nerve problems (inability to walk on your toes or heels, numbness, loss of bowel or bladder control) 5. any other symptoms that concern you C. Please call the office at if you have any concerns or questions about your operation or recovery. D. No smoking! Smoking drastically decreases the chance of a solid fusion. E. Do not take any anti-inflammatory medications (Indocin, Advil, Motrin, Aspirin, Naprosyn, etc.) as these may inhibit the chance of a solid fusion. Tylenol is okay to take for pain. MANAGING PAIN AFTER SPINAL SURGERY 1. Narcotic medication is intended for short-term use and will be provided for surgical pain. Surgical pain usually lasts for a period of 4-6 weeks. Narcotic medication includes Percocet, Vicodin, Darvocet, Tylenol #3 or Lortab. 2. Longer-term pain is more appropriately treated with non-narcotic medication such as Tylenol ES. 3. Muscle spasm is not appropriately treated with narcotics. Muscle relaxers such as Soma, Flexeril or Skelaxin can be used along with Tylenol ES. 4. Remember that we all live with some "aches and pains". This is not unusual or uncommon after an injury or as we get older. a. Back pain is expected and may include muscle spasms for 4 to 6 weeks after surgery. The pain should gradually improve. If the pain worsens for no apparent reason, please contact the office. b. Intermittent leg pain may also be experienced and should not be concerned about unless it worsens for no apparent reason. If so, please contact the office. 5. We will provide appropriate medication within the normal guidelines of their prescribed use. We will also be very cautious and aware of potential abuse and extended duration of patients' medication needs. a. Pain medications are for your comfort and to assist with sleep and rest so that the tissue can heal. They are not provided in order to return to normal activity and should not be used through the day. To do so or worsening pain at night can result from ongoing tissue damage and development of tolerance to the prescribed medicine. 6. Please allow 2-3 days to process refills. Prescriptions will not be mailed but must be picked up at the office. FOLLOW UP VISIT: Keep your scheduled follow-up appointment. Any questions, please call the office at . Pending Studies at Discharge: No Stand-Alone Forms: My [facility], Smoking Cessation Medications and DC Order Prescriptions: New tramadol 50 mg tablet 50 mg PO Q6H PRN (Reason: pain, moderate) Qty: 30 0RF oxycodone 5 mg tablet 5 mg PO Q6H PRN (Reason: pain) Qty: 30 0RF Continued oxycodone 5 mg tablet 5 mg PO Q6H PRN (Reason: pain) Qty: 12 0RF lisinopril 20 mg tablet 20 mg PO QAM sildenafil 25 mg tablet 25 mg PO UD PRN (Reason: Sexual Activity) levothyroxine [Synthroid] 50 mcg tablet 50 mcg PO DAILYBB amlodipine 5 mg tablet 5 mg PO QAM aspirin 81 mg Tablet,Delayed Release (Dr/Ec) 81 mg PO QAM simvastatin 20 mg tablet 20 mg PO HS multivitamin Tablet 1 tab PO QAM Discharge Orders: Discharge Order (Routine); Ordered 06/25/22 Ordered By: Martin Stafford/Other Patient Handouts: Prediabetes, 5 Steps for Eating Healthier Admission Data Admit Date/Time: 06/21/22 21:47 Attending Provider: Liliam Kat Admit Provider: Sal Haywood Primary Care Provider: Brian Ulloa Other Providers: Sal Haywood ; Martin Farmer
[2022-06-25] MEDS: amLODIPine BESYLATE 5 MG TAB PO SCH (08:38)
[2022-06-25] MEDS: SENNA 8.6 MG TAB PO SCH (08:39)
[2022-06-25] MEDS: MULTIVITAMIN TAB PO SCH (08:39)
[2022-06-25] MEDS: oxyCODONE HCL IR 5 MG TAB (IMMEDIATE RELEASE) PO PRN (08:44)
[2022-06-25] MEDS: INSULIN ASPART PER UNIT CHARGE SC SCH (08:46)
== END 2022-06-25 12:43 | disposition home or self-care (01) | DRG 455 ==
LOC: ED 17:18 → SUATTDRO 21:47 → EDINP 21:47 → 3W 22:50 → 3N 06-22 11:15

== ENCOUNTER 2023-10-18 09:40 | Inpatient (IN) ==
--- NOTE | 2023-10-18 09:51 | Emergency Department Note ---
History of Present Illness General Chief complaint: Back Injury/Pain Stated complaint: BACK INJURY Time Seen by Provider: 10/18/23 09:48 History of Present Illness Maximum Pain Intensity: 10 This is a 73-year-old male that presents to the emergency department via private vehicle with complaints of "right leg pain". Patient has a history of lumbar spine surgery performed by Dr. Farmer on 06/23/2022. This was secondary to lumbar disc herniation with radiculopathy. Patient notes that he was doing quite well after the surgery. However, he notes that for a bit of time now (past few months) he has been experiencing right leg pain described as starting at the right gluteal area posteriorly and radiating down the right lateral leg to the level of the right knee. It is worse with ambulation and weightbearing. Better with rest. No abdominal pain. No chest pain or shortness of breath. No trauma or injury. No fevers or chills. Patient does note right leg weakness. Otherwise no bowel or bladder incontinence, no numbness or tingling in the genital region. With ambulation pain is a 10/10. He states he cannot walk now due to the pain. Patient does note this pain is similar to what prompted the lumbar spine surgery last year. Patient has been managing his pain at home with ibuprofen and acetaminophen. Patient as well as at bedside confirms he has not exceeded package recommendations. It is important to note that in the patient's ED visit summary there is note of midsternal chest pain however this is inaccurate and not regarding this patient. I discussed this with the animation producer and they were able to update to the correct chief complaint and symptoms. Home Medications Medication Instructions Recorded Confirmed Type amlodipine 5 mg tablet 5 mg PO QAM 06/21/22 10/18/23 History levothyroxine 50 mcg tablet 50 mcg PO DAILYBB 06/21/22 10/18/23 History (Synthroid) lisinopril 20 mg tablet 20 mg PO QAM 06/21/22 10/18/23 History multivitamin 1 tab PO QAM 06/21/22 10/18/23 History sildenafil 25 mg tablet 25 mg PO UD PRN Sexual Activity 06/21/22 10/18/23 History simvastatin 20 mg tablet 20 mg PO HS 06/21/22 10/18/23 History cholecalciferol (vitamin D3) 25 25 mcg PO DAILY 10/18/23 10/18/23 History mcg (1,000 unit) tablet (Vitamin D3) cinnamon bark 500 mg capsule 500 mg PO DAILY 10/18/23 10/18/23 History (Cinnamon) glucosamine sulf dipot 1 cap PO DAILY 10/18/23 10/18/23 History chlr,msm,chond 550 mg-C 30 mg-nayana 1 mg capsule (Glucosamine Chondroitin) omega 1-zos-myb-fish oil 1,000 mg 1 cap PO DAILY 10/18/23 10/18/23 History (120 mg-180 mg) capsule (Fish Oil) Allergies Allergy/AdvReac Type Severity Reaction Status Date / Time No Known Allergies Allergy Unverified 10/18/23 14:24 Past Med/Surg History Problem List (Updated 10/18/23 @ 10:05 by Cheng Negron PA-C) Acute right lumbar radiculopathy (Acute) Arthritis of right hip Abdominal hernia DVT prophylaxis Obesity (BMI 30-39.9) Lumbar disc herniation with radiculopathy Hypothyroidism (acquired) Hyperlipidemia Hypertension Lumbar back pain with radiculopathy affecting left lower extremity Spinal stenosis of lumbar region Lumbar degenerative disc disease Sciatica of left side (Acute) Intractable back pain (Acute) Medical History Erectile dysfunction Surgical History History of lumbar surgery History of appendectomy S/P total left hip arthroplasty No pertinent past surgical history Social History Smoking Status: Never smoker Second Hand Exposure: No; Do You Dip or Chew Tobacco: No; Tobacco Cessation Education Requested by Patient: No Hx Alcohol Use: No Hx Substance Use: No Preferred Language: Japanese Communication Ability: Effective 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 Beliefs That Will Affect Care: None Current Living Situation: Spouse Other Information That Helps Us Care for You: No Feels Safe at Home: Yes Safety Concerns: Feels Safe At This Time Assistive Devices: None Review of Systems A total of 10 systems reviewed and were otherwise negative Physical Exam Vital Signs Vital Signs - 24 hr 10/18/23 09:42 10/18/23 12:04 10/18/23 12:04 Temperature 36.4 C L Temperature Source Temporal Artery Scan Pulse Rate 79 78 Pulse Rate [Apical] 79 Respiratory Rate 18 22 22 Blood Pressure 179/80 H Blood Pressure [Right Arm] 156/85 H Blood Pressure Mean 113 Blood Pressure Mean [Right Arm] 108 Pulse Oximetry 93 94 94 Oxygen Delivery Method Room Air Room Air Room Air Oxygen Flow Rate Sepsis Recent Fever Within 48 Hours No Sepsis New/Unexplained Change in Mental Status N/A Sepsis Action Taken by Nursing No Action Required Oxygen Flow Rate - Titration Pulse Oximetry Post Tiitration 10/18/23 13:03 10/18/23 13:06 Temperature Temperature Source Pulse Rate 71 Pulse Rate [Apical] Respiratory Rate Blood Pressure Blood Pressure [Right Arm] Blood Pressure Mean Blood Pressure Mean [Right Arm] Pulse Oximetry 88 L Oxygen Delivery Method Room Air Oxygen Flow Rate 0 Sepsis Recent Fever Within 48 Hours Sepsis New/Unexplained Change in Mental Status Sepsis Action Taken by Nursing Oxygen Flow Rate - Titration 2 Pulse Oximetry Post Tiitration 95 VITAL SIGNS - Vital signs and nursing notes were reviewed. Hypertensive, otherwise stable. GENERAL -73-year-old male appearing his stated age who is in no acute distress. Communicates well with provider and answers questions appropriately. SKIN - Without rashes. No meningeal or petechial rash. HEAD - NC/AT. EYES - Sclera anicteric. MOUTH/OROPHARYNX - Without perioral cyanosis. NECK - Neck with FROM. No nuchal rigidity. No tenderness over the C-spine. LUNGS -clear to auscultation CARDIAC -regular rate and rhythm. ABDOMEN - Abdominal contour normal without pulsations or visible masses. BS normoactive all four quadrants. Palpable ventral hernia noted without tenderness. EXTREMITIES - No clubbing or peripheral cyanosis. Patient is able to stand, axial load but is slow to bear weight and ambulate secondary to pain in the right gluteal area. +5/5 strength noted in UE/LE bilaterally. MUSCULOSKELETALthere is no tenderness overlying the C, T or L-spine or paraspinous musculature. Tenderness does begin in the superior right gluteal area near the SI joint and tracks down the right leg. No palpable cord. No lower extremity edema. The lower extremities are appropriately warm and well- perfused. Good push and pull of the lower extremities against resistance. Patient able to actively plantarflex and dorsiflex bilateral ankles within normal limits. Patient is able to axial load and ambulate but with a cane and with significant difficulty. NEUROLOGIC - Cranial nerves II through XII grossly intact. No deficits of the lower extremities appreciated on exam. PSYCH -alert, oriented to pleasant on exam. Course Administered Medications Amlodipine Besylate (Amlodipine Besylate 5 Mg Tab) 5 mg PO [facility] Stop: 11/17/23 20:59 Last Admin: 10/18/23 21:01 Dose: 5 mg Documented By: TRENT Lactated Ringer's (Lr) 1,000 mls @ 75 mls/hr IV .[id number] ABDIRASHID Stop: 11/17/23 16:29 Last Admin: 10/18/23 17:13 Dose: 75 mls/hr Documented By: PAMELA Lisinopril (Lisinopril 20 Mg Tab) 20 mg PO [facility] Stop: 11/17/23 20:59 Last Admin: 10/18/23 21:01 Dose: 20 mg Documented By: TRENT Simvastatin (Simvastatin 20 Mg Tab) 20 mg PO [facility] Stop: 11/17/23 20:59 Last Admin: 10/18/23 21:01 Dose: 20 mg Documented By: TRENT Discontinued Medications Hydromorphone HCl (Hydromorphone Inj 0.5 Mg/0.5 Ml Syr) 0.25 mg IV NOW STA Stop: 10/18/23 11:53 Last Admin: 10/18/23 12:03 Dose: 0.25 mg Documented By: SHONDA Lidocaine (Lidocaine 5% 1 Patch) 1 patch TD NOW STA Stop: 10/18/23 11:52 Last Admin: 10/18/23 12:03 Dose: 1 patch Documented By: SHONDA Miscellaneous (Remove Lidoderm Patch) 1 each N/A DAILY@2100 ABDIRASHID Stop: 10/18/23 21:01 Last Admin: 10/18/23 21:01 Dose: 1 each Documented By: TRENT Ondansetron HCl (Ondansetron Inj 2 Mg/Ml 2 Ml Vial) 4 mg IV NOW STA Stop: 10/18/23 11:53 Last Admin: 10/18/23 12:03 Dose: 4 mg Documented By: SHONDA Medical Decision Making Laboratory Data 10/18/23 10:30 10/18/23 10:30 Lab Results 10/18/23 Range/Units 10:30 WBC 12.09 H (4.8-10.8) K/ul RBC 4.84 (4.70-6.10) M/uL Hgb 13.7 L (14.0-18.0) g/dl Hct 41.7 L (42.0-52.0) % MCV 86.2 (80.0-100.0) fL MCH 28.3 (25.0-34.0) pg MCHC 32.9 (32.0-36.0) g/dL RDW Std Deviation 47.8 H (36.4-46.3) fL RDW Coeff of Delvin 15.1 H (11.5-14.5) % Plt Count 257 (130-400) K/uL MPV 10.3 (9.4-12.4) fL Immature Gran % (Auto) 0.5 % Neut % (Auto) 67.4 % Lymph % (Auto) 21.7 % Major % (Auto) 8.4 % Eos % (Auto) 1.3 % Baso % (Auto) 0.7 % Neut # (Auto) 8.15 H (1.40-6.50) K/uL Lymph # (Auto) 2.62 (1.20-3.40) K/uL Major # (Auto) 1.01 H (0.11-0.59) K/uL Eos # (Auto) 0.16 (0.00-0.50) K/uL Baso # (Auto) 0.09 (0.00-0.20) K/uL Immature Gran # (Auto) 0.06 (0.01-0.20) K/uL Sodium 139 (136-145) mmol/L Potassium 4.3 (3.5-5.1) mmol/L Chloride 108 H (98-107) mmol/L Carbon Dioxide 23 (21-32) mmol/L Anion Gap 8 (3-11) BUN 22 (6-23) mg/dl Creatinine 0.81 (0.6-1.4) mg/dl Est Cr Clr Drug Dosing Not Reportable Est GFR ( Amer) 103.6 ml/min Est GFR (Non-Af Amer) 89.4 ml/min BUN/Creatinine Ratio 27.2 H (10-20) Glucose 89 (70-99(Fasting)) mg/dl Calcium 9.5 (8.6-10.3) mg/dl Total Bilirubin 0.4 (0.2-1.0) mg/dl AST 18 (13-39) U/L ALT 24 (7-52) U/L Alkaline Phosphatase 64 (34-104) U/L Total Protein 7.4 (6.0-8.3) gm/dl Albumin 4.4 (3.4-5.0) gm/dl Globulin 3.0 (2.5-4.0) gm/dl Albumin/Globulin Ratio 1.5 (0.9-2) Imaging Data Radiologist's Impression: Lumbar Spine MRI 10/18/23 09:57 MR lumbar spine wo con CLINICAL HISTORY: R leg pain, weakness. Hx L spine surgery TECHNIQUE: Multiplanar sequences through the lumbar spine were obtained, without intravenous contrast. Comparison: Comparison is made to MRI lumbar spine 06/21/2022 FINDINGS: L4-L5 decompression and fusion are seen. Right greater than left T12-L1 disc bulge resulting in moderate left and mild right foraminal stenosis and mild canal stenosis, AP diameter 7 mm. L1-L2: Facet arthropathy results in moderate bilateral foraminal stenosis. L2-L3: Broad-based posterior disc bulge is seen with mild canal stenosis but no significant neuroforaminal stenosis. L3-L4: No significant abnormality. L4-L5: No significant abnormality. L5-S1: No significant abnormality. The spinal ligaments are intact, without evidence of disruption or abnormal signal intensity. The spinal cord is normal in signal intensity and there is no evidence of cord contusion. There is no evidence of an extradural, intradural, extramedullary or intramedullary lesion. Visualized soft tissues are normal. IMPRESSION: 1. Left-sided disc bulge at T12-L1 resulting in mild canal stenosis, AP diameter 7 mm, and mild right and moderate left neuroforaminal stenosis. There is moderate bilateral neuroforaminal stenosis at L1-L2. 2. Interval L4-L5 decompression and fusion with improvement in previously noted neuroforaminal stenosis. ACT 112: Negative or not required by law. Electronically signed by: Jere Liu M.D. 10/18/2023 11:39 AM MDM Narrative Patient was seen and evaluated as above in room D3b. Review was performed of triage nursing notes and vital signs. I did review pertinent previous visits and patient history. I did review the recent outpatient orthopedic visits dated 09/22 as well as 09/28 of last month. This was to further eval the patient's right hip pain. Patient notes that he did undergo injections to the right hip however notes pain did not change at all. After obtaining a thorough history and physical examination the above work up was performed. Patient presents to us today for evaluation of right lower extremity pain that is concerning to be originating from the L-spine. Pain starts at the superior gluteal area just inferior to the SI joint region and tracks to the right lateral leg area down to the right knee. There is no reproducible tenderness to patient of the knee or right hip area. No bony tenderness over the SI joint or L-spine. There is subjective right lower extremity weakness. Patient notes severe pain when he ambulates. He notes this pain is similar to what prompted his L-spine surgery last year. No infectious symptoms. Options of care were discussed with the patient. Patient was offered analgesia here for his pain and respectfully declined. X-ray of the L-spine was ordered. However, noting the patient's history of L-spine surgery with subjective right leg weakness and significant ambulatory trouble noting this right leg pain I do believe that MRI of the L-spine is also warranted. I did review the L-spine imaging both x-ray and MRI. I also reviewed the patient's radiology reports as dictated above. The patient does have significant pain with movement. We did agree to trial IV analgesic here as well as lidocaine patch. Patient was resting comfortably following administration of the medicine. I will note the patient did receive 0.5 mg IV Dilaudid last year and during today's evaluation did receive 0.25 mg instead. Today it was noted the o2 dropped to about 88% at rest therefore was started on supplemental oxygen for short period of time. In regard to the right leg pain that the patient notes is severe to a point he is unable to ambulate, I discussed benefit versus risk of inpatient versus outpatient management. I also discussed this with the patient's established by an surgeon, Dr. Farmer. He came to evaluate the patient. Patient does prefer inpatient management which I do believe is reasonable. Patient will be admitted to Dr. Farmer service for further evaluation and management. Please refer to further documentation regarding his stay. GCS: 15 In the evaluation and treatment of this patient the following differential diagnosis entertained: Fracture, dislocation, subluxation, cauda equina syndrome, right hip fracture, right hip etiology, diverticulitis, appendicitis, torsion, osteomyelitis, piriformis syndrome, strain, sprain, among others. Impression & Plan Acute right lumbar radiculopathy Discharge Plan Visit Data Chief Complaint: Back Injury/Pain Stated Complaint: BACK INJURY ED Provider: Dominick Stovall ED Midlevel Provider: Cheng Negron Discharge Problem: Acute right lumbar radiculopathy Patient Disposition: Admitted As Inpatient Condition: Good Discharge Instructions Interventions: ED Discharge Assessment Last Done: 10/18/23 15:09
--- NOTE | 2023-10-18 10:08 | Emergency Department Note ---
ED Visit Note I was consulted by the Advanced Practice Provider. The case was discussed at length. I personally made/approved the management plan and take responsibility for the patient management. I performed a substantive portion of the visit. This includes the aspects of: [-I independently interpreted the following studies:][Lumbar spine series does not show any acute fracture. There is significant spurring and arthritis seen. Hardware is in place.] Patient did undergo a lumbar spine MRI. This showed a disc bulge with some neural foraminal stenosis. The spinal surgical service was consulted. The patient was seen in the ED by spinal surgery. Hospitalization was felt warranted. .
--- NOTE | 2023-10-18 10:35 | XRay Report ---
LUMBAR SPINE 5 VIEWS CLINICAL HISTORY: Low back pain. Right gluteal pain. FINDINGS: Five views of the lumbar spine are compared to study dated 06/16/2022. The skeletal structure s are osteopenic. There is no radiographic evidence of acute fracture or malalignment. Vertebral body height and alignment are maintained. Anterior and lateral marginal osteophytes are seen throughout. The transverse processes appear intact. There is postsurgical change from discectomy at L5-S1 with la minectomy and posterior fusion at this level. Interpedicular screws are in place. The orthopedic hard justice appears intact. There is multilevel facet arthropathy. Minimal disc space narrowing is seen at t he remaining lumbar levels. The visualized bony pelvis appears intact. A left hip arthroplasty is par tially visualized. Arthritic changes are noted in the right hip. There is degenerative sclerosis of t he sacroiliac joints. No bowel obstruction is seen. Advanced atherosclerotic calcification is noted i n the abdominal aorta. Calcifications in the right upper quadrant are similar to prior studies. IMPRESSION: 1. No acute bony abnormality is seen involving the lumbar spine. 2. Osteopenia and spondylotic change as above. Dictated: 10/18/2023 10:23 AM Transcribed: 10/18/2023 10:30 AM Paulo [id number] [email or web address] Electronically signed by: Dominick Abbasi M.D. 10/18/2023 10:34 AM
[2023-10-18 10:55] LABS: Basophils # (auto) 0.09 K/uL (0.00-0.20); Basophils % (auto) 0.7 %; Eosinophils # (auto) 0.16 K/uL (0.00-0.50); Eosinophils % (auto) 1.3 %; Hematocrit (blood only) 41.7 % (42.0-52.0); Hemoglobin 13.7 g/dl (14.0-18.0); Immature Granulocytes # (auto) 0.06 K/uL (0.01-0.20); Immature Granulocytes % (auto) 0.5 %; Lymphocytes # (auto) 2.62 K/uL (1.20-3.40); Lymphocytes % (auto) 21.7 %; Mean Corpuscular Hemoglobin 28.3 pg (25.0-34.0); Mean Corpuscular Hgb Conc 32.9 g/dL (32.0-36.0); Mean Corpuscular Volume 86.2 fL (80.0-100.0); Mean Platelet Volume 10.3 fL (9.4-12.4); Monocytes # (auto) 1.01 K/uL (0.11-0.59); Monocytes % (auto) 8.4 %; Neutrophils # (auto) 8.15 K/uL (1.40-6.50); Neutrophils % (auto) 67.4 %; Platelet Count 257 K/uL (130-400); RDW Coefficient of Variation 15.1 % (11.5-14.5); RDW Standard Deviation 47.8 fL (36.4-46.3); Red Blood Count 4.84 M/uL (4.70-6.10); White Blood Count 12.09 K/ul (4.8-10.8)
[2023-10-18 11:08] LABS: Alanine Aminotransferase 24 U/L (7-52); Albumin Globulin Ratio 1.5 (0.9-2); Albumin Level 4.4 gm/dl (3.4-5.0); Alkaline Phosphatase 64 U/L (34-104); Anion Gap 8 (3-11); Aspartate Aminotransferase 18 U/L (13-39); BUN Creatinine Ratio 27.2 (10-20); Bilirubin,Total 0.4 mg/dl (0.2-1.0); Blood Urea Nitrogen 22 mg/dl (6-23); Calcium 9.5 mg/dl (8.6-10.3); Carbon Dioxide 23 mmol/L (21-32); Chloride 108 mmol/L (98-107); Est GFR (African American) 103.6 ml/min; Est GFR (Non-African American) 89.4 ml/min; Glucose 89 mg/dl (70-99(Fasting)); Potassium 4.3 mmol/L (3.5-5.1); Sodium 139 mmol/L (136-145); Total Protein 7.4 gm/dl (6.0-8.3)
--- NOTE | 2023-10-18 11:41 | Magnetic Resonance Report ---
MR lumbar spine wo con CLINICAL HISTORY: R leg pain, weakness. Hx L spine surgery TECHNIQUE: Multiplanar sequences through the lumbar spine were obtained, without intravenous contrast . Comparison: Comparison is made to MRI lumbar spine 06/21/2022 FINDINGS: L4-L5 decompression and fusion are seen. Right greater than left T12-L1 disc bulge resulting in moder ate left and mild right foraminal stenosis and mild canal stenosis, AP diameter 7 mm. L1-L2: Facet arthropathy results in moderate bilateral foraminal stenosis. L2-L3: Broad-based posterior disc bulge is seen with mild canal stenosis but no significant neurofora yasmani stenosis. L3-L4: No significant abnormality. L4-L5: No significant abnormality. L5-S1: No significant abnormality. The spinal ligaments are intact, without evidence of disruption or abnormal signal intensity. The spi nal cord is normal in signal intensity and there is no evidence of cord contusion. There is no eviden ce of an extradural, intradural, extramedullary or intramedullary lesion. Visualized soft tissues are normal. IMPRESSION: 1. Left-sided disc bulge at T12-L1 resulting in mild canal stenosis, AP diameter 7 mm, and mild righ t and moderate left neuroforaminal stenosis. There is moderate bilateral neuroforaminal stenosis at L 1-L2. 2. Interval L4-L5 decompression and fusion with improvement in previously noted neuroforaminal steno sis. ACT 112: Negative or not required by law. Electronically signed by: Jere Liu M.D. 10/18/2023 11:39 AM
[2023-10-18] MEDS: HYDROmorphone INJ 0.5 MG/0.5 ML SYR IV STA (12:03)
[2023-10-18] MEDS: ONDANSETRON INJ 2 MG/ML 2 ML VIAL IV STA (12:03)
[2023-10-18] MEDS: LIDOCAINE 5% 1 PATCH TD STA (12:03)
[2023-10-18] MEDS ORDERED: oxyCODONE HCL IR 5 MG TAB (IMMEDIATE RELEASE) PO PRN (16:30)
[2023-10-18] MEDS ORDERED: NALOXONE HCL 0.4 MG/1 ML VIAL/CARP IV PRN (16:30)
[2023-10-18] MEDS ORDERED: ACETAMINOPHEN 1,000 MG/100 ML VIAL IV PRN (16:30)
[2023-10-18] MEDS ORDERED: traMADol HCL 50 MG TABLET PO PRN (16:30)
[2023-10-18] MEDS ORDERED: ONDANSETRON 4 MG OD TAB PO PRN (16:30)
[2023-10-18] MEDS ORDERED: ACETAMINOPHEN 500 MG TAB PO PRN (16:30)
[2023-10-18] MEDS ORDERED: METOCLOPRAMIDE HCL INJ 5 MG/ML 2 ML VIAL IV PRN (16:30)
[2023-10-18] MEDS ORDERED: PROMETHAZINE 12.5 MG/50.5 ML BAG IV PRN (16:30)
[2023-10-18] MEDS ORDERED: HYDROmorphone INJ 1 MG/ML SYRINGE IV PRN (16:30)
[2023-10-18] MEDS ORDERED: HYDROmorphone INJ 0.5 MG/0.5 ML SYR IV PRN ×3 (16:30→19:07)
[2023-10-18] MEDS ORDERED: LORazepam 0.5 MG TAB PO PRN ×2 (16:30→18:58)
[2023-10-18] MEDS ORDERED: LORazepam 2 MG/1 ML VIAL IV PRN ×2 (16:30→18:58)
[2023-10-18] MEDS ORDERED: ONDANSETRON INJ 2 MG/ML 2 ML VIAL IV PRN (16:30)
[2023-10-18] MEDS ORDERED: MAGNESIUM HYDROXIDE SUSP 30 ML UDC PO PRN (16:30)
[2023-10-18] MEDS ORDERED: Patient's HEIGHT &/or WEIGHT Needed STA (16:33)
[2023-10-18] MEDS: LACTATED RINGER'S 1,000 ML IV SCH (17:13)
[2023-10-18] MEDS: lisinopril 20 MG TAB PO SCH (21:01)
[2023-10-18] MEDS: amLODIPine BESYLATE 5 MG TAB PO SCH (21:01)
[2023-10-18] MEDS: SIMVASTATIN 20 MG TAB PO SCH (21:01)
[2023-10-19] MEDS: LEVOTHYROXINE SODIUM 50 MCG TABLET PO SCH (05:40)
--- NOTE | 2023-10-19 07:50 | History & Physical Report ---
Date of Service October 19, 2023 Assessment & Plan (1) Arthritis of right hip: Plan: Assessment advanced osteoarthritis the right hip. Plan at this time I had opportunity review his MRI lumbar spine. He does demonstrate adjacent level spondylosis but no gross neural compression. Reviewing imaging of his right hip over the past 6 weeks has been a marked change with worsening of his hip architecture consistent with advanced osteoarthritis. Admission and Anticipated Discharge Date Admission Date: October 18, 2023 History of Present Illness Chief Complaint: Right leg pain Primary Care Provider: Brian Ulloa This is a 73-year-old male that presents emergency room with marked client status with past several weeks. He states today he was unable to ambulate and could not work. He was seen emergency room underwent MRI imaging of lumbar spine was notified of his presence. Secondary to his severe discomfort with ambulation he was admitted for pain control and workup. Allergies Allergy/AdvReac Type Severity Reaction Status Date / Time No Known Allergies Allergy Unverified 10/18/23 14:24 Home Medications Medication Instructions Recorded Confirmed Type amlodipine 5 mg tablet 5 mg PO QAM 06/21/22 10/18/23 History levothyroxine 50 mcg tablet 50 mcg PO DAILYBB 06/21/22 10/18/23 History (Synthroid) lisinopril 20 mg tablet 20 mg PO QAM 06/21/22 10/18/23 History multivitamin 1 tab PO QAM 06/21/22 10/18/23 History sildenafil 25 mg tablet 25 mg PO UD PRN Sexual Activity 06/21/22 10/18/23 History simvastatin 20 mg tablet 20 mg PO HS 06/21/22 10/18/23 History cholecalciferol (vitamin D3) 25 25 mcg PO DAILY 10/18/23 10/18/23 History mcg (1,000 unit) tablet (Vitamin D3) cinnamon bark 500 mg capsule 500 mg PO DAILY 10/18/23 10/18/23 History (Cinnamon) glucosamine sulf dipot 1 cap PO DAILY 10/18/23 10/18/23 History chlr,msm,chond 550 mg-C 30 mg-nayana 1 mg capsule (Glucosamine Chondroitin) omega 3-sny-tgt-fish oil 1,000 mg 1 cap PO DAILY 10/18/23 10/18/23 History (120 mg-180 mg) capsule (Fish Oil) Past Med/Surg History Problem List (Updated 10/18/23 @ 10:05 by Cheng Negron PA-C) Acute right lumbar radiculopathy (Acute) Arthritis of right hip Abdominal hernia DVT prophylaxis Obesity (BMI 30-39.9) Lumbar disc herniation with radiculopathy Hypothyroidism (acquired) Hyperlipidemia Hypertension Lumbar back pain with radiculopathy affecting left lower extremity Spinal stenosis of lumbar region Lumbar degenerative disc disease Sciatica of left side (Acute) Intractable back pain (Acute) Medical History Erectile dysfunction Surgical History History of lumbar surgery History of appendectomy S/P total left hip arthroplasty No pertinent past surgical history Social History Smoking Status: Never smoker Second Hand Exposure: No; Do You Dip or Chew Tobacco: No; Tobacco Cessation Education Requested by Patient: No Hx Alcohol Use: No Hx Substance Use: No Preferred Language: Tajik Communication Ability: Effective Patient Care Coordinator Required: No Beliefs That Will Affect Care: None Current Living Situation: Spouse Other Information That Helps Us Care for You: No Feels Safe at Home: Yes Safety Concerns: Feels Safe At This Time Assistive Devices: None Physical Exam Physical Exam: On exam he does demonstrate +5-5 plantarflexion dorsiflexion quadriceps. He ambulates with marked antalgia with weightbearing to right lower extremity. His positive logroll on the right and negative on the left. Sensory symmetric and intact. Results & Data Results & Data Vital Signs (Past 12 Hours) Vital Signs Temp Pulse Resp BP Pulse Ox O2 Del Method 10/18/23 19:51 36.6 C 77 18 149/76 H 95 Room Air Code Status & VTE Plan VTE Prophylaxis Plan VTE Prophylaxis will be ordered: Yes
[2023-10-19] MEDS ORDERED: lisinopril 20 MG TAB PO SCH (09:00)
[2023-10-19] MEDS ORDERED: amLODIPine BESYLATE 5 MG TAB PO SCH (09:00)
--- NOTE | 2023-10-19 11:08 | Orthopedic Consultation ---
Date of Service October 19, 2023 Assessment & Plan (1) Arthritis of right hip: Seen by Dr. Parra today. MRI of right hip ordered. Check ESR/CRP We discussed the possibility of hip replacement surgery but want to get a MRI to see if he has significant bone marrow edema or other findings to explain his severe pain. History of Present Illness Reason for Consultation: . Requesting Physician: . Attending Physician: DO Abel BecerraJayy is a 73 year old patient admitted by Dr. Farmer for right leg pain. He recently saw Dr. Parra for his right hip, had an intraarticular hip injection 09/28 which he says did not help at all. His pain has been progressively worsening to the point that he felt he needed to come the ER yesterday. He was unable to continue working due to the pain. He uses a cane at times. Describes right groin and thigh pain. Allergies Allergy/AdvReac Type Severity Reaction Status Date / Time No Known Allergies Allergy Unverified 10/18/23 14:24 Home Medications Medication Instructions Recorded Confirmed Type amlodipine 5 mg tablet 5 mg PO QAM 06/21/22 10/18/23 History levothyroxine 50 mcg tablet 50 mcg PO DAILYBB 06/21/22 10/18/23 History (Synthroid) lisinopril 20 mg tablet 20 mg PO QAM 06/21/22 10/18/23 History multivitamin 1 tab PO QAM 06/21/22 10/18/23 History sildenafil 25 mg tablet 25 mg PO UD PRN Sexual Activity 06/21/22 10/18/23 History simvastatin 20 mg tablet 20 mg PO HS 06/21/22 10/18/23 History cholecalciferol (vitamin D3) 25 25 mcg PO DAILY 10/18/23 10/18/23 History mcg (1,000 unit) tablet (Vitamin D3) cinnamon bark 500 mg capsule 500 mg PO DAILY 10/18/23 10/18/23 History (Cinnamon) glucosamine sulf dipot 1 cap PO DAILY 10/18/23 10/18/23 History chlr,msm,chond 550 mg-C 30 mg-nayana 1 mg capsule (Glucosamine Chondroitin) omega 6-via-omp-fish oil 1,000 mg 1 cap PO DAILY 10/18/23 10/18/23 History (120 mg-180 mg) capsule (Fish Oil) Past Med/Surg History Problem List Acute right lumbar radiculopathy (Acute) Arthritis of right hip Abdominal hernia DVT prophylaxis Obesity (BMI 30-39.9) Lumbar disc herniation with radiculopathy Hypothyroidism (acquired) Hyperlipidemia Hypertension Lumbar back pain with radiculopathy affecting left lower extremity Spinal stenosis of lumbar region Lumbar degenerative disc disease Sciatica of left side (Acute) Intractable back pain (Acute) Medical History Erectile dysfunction Surgical History History of lumbar surgery History of appendectomy S/P total left hip arthroplasty No pertinent past surgical history Social History Smoking Status: Never smoker Second Hand Exposure: No; Do You Dip or Chew Tobacco: No; Tobacco Cessation Education Requested by Patient: No Hx Alcohol Use: No Hx Substance Use: No Preferred Language: Syriac Communication Ability: Effective Filter Plant Operator Required: No Beliefs That Will Affect Care: None Current Living Situation: Spouse Other Information That Helps Us Care for You: No Feels Safe at Home: Yes Safety Concerns: Feels Safe At This Time Assistive Devices: Cane Review of Systems All systems reviewed & are unremarkable except as noted in HPI & below. Physical Exam .alert and oriented. NAD Right leg: Painful range of motion and stiffness of right hip with rotation. Results & Data Results & Data Laboratory Results . Diagnostic Findings . lumbar spine xrays were reviewed and does look like his right hip arthritis has progressed from previous xrays. PG Care Time/CCT Total # of Minutes Spent Total Time Spent with Patient: Total time spent is greater than 50% in coordination of care (as documented) at patient's floor/unit and/or counseling patient: Coding Level of Care Code 19710 IN/OBS CONSULT LVL 3,45M Diagnoses Arthritis of right hip M16.11
--- NOTE | 2023-10-19 14:22 | Magnetic Resonance Report ---
MR hip RT wo con CLINICAL HISTORY: hip pain TECHNIQUE: Multisequence, multiplanar images of the right hip were obtained without the administratio n of intravenous gadolinium. Comparison: None available at the time of this dictation. FINDINGS: The visualized pelvic bones demonstrate normal marrow signal without focal abnormality. Left hip arth roplasty is seen. Right femoral head is intact without evidence of fracture. There are no findings to suggest iliopsoas or trochanteric bursitis and the capsular structures are f ree of tear. The iliopsoas, hamstring, and gluteus tendinous attachments are normal. There is no soft tissue mass or muscular atrophy. There is a tear of the anterior labrum. Osteoarthritic changes chondromalacia, marrow edema, and prom inent joint fluid. The visualized portions of the intraperitoneal structures and pelvic sidewalls are normal apart from fat-containing left inguinal hernia and diverticulosis of the colon. IMPRESSION: Prominent osteoarthritic changes are seen with associated anterior labral degeneration/tear. No muscu lar injury is seen. ACT 112: Negative or not required by law. Electronically signed by: Jere Liu M.D. 10/19/2023 2:21 PM
--- NOTE | 2023-10-19 19:45 | XRay Report ---
XR chest 2V PA/lateral HISTORY: pre-op COMPARISON: Chest 06/22/2022. FINDINGS: There are low lung volumes. A few bibasilar linear densities favor subsegmental atelectasis or scarring. Otherwise, the lungs are clear. The heart is normal in size. Calcifications within the aortic knob. No acute fractures. IMPRESSION: No acute process. ACT 112: Negative or not required by law. Electronically signed by: Mik Isaac M.D. 10/19/2023 7:43 PM
--- NOTE | 2023-10-19 22:44 | Hospitalist Consultation ---
Date of Consultation October 19, 2023 Assessment & Plan (1) Acute right lumbar radiculopathy: Management per primary team (2) Hypertension: Blood pressures have remained stable while inpatient Continue amlodipine 5 mg daily Continue lisinopril 20 mg daily (3) Hyperlipidemia: Continue simvastatin 20 mg daily (4) Hypothyroidism (acquired): Continue levothyroxine 50 mcg daily Plan Hospitalist service will continue to follow. Please reach out with any questions or concerns. CODE STATUS: Full code History of Present Illness Reason for Consultation: Medical management Requesting Physician: Martin Farmer DO Attending Physician: Martin Farmer DO History of Present Illness Mr. Galindo is a pleasant 73-year-old male admitted by ortho spine for right leg pain. Patient notes progressively worsening hip/back pain over the past several weeks. He reports that he had an intraarticular hip injection on 09/29/[address] Parra which did not provide any relief to his pain. He notes that the pain became so severe he was unable to ambulate, which prompted his presentation to the ED. He reports that the pain is most prominent in his right-sided groin and down his right thigh, as well as his lower back. He does use a cane with ambulation intermittently. Hospitalist service was consulted for medical management. Patient's vital signs are stable, electrolytes WNL. He denies chest pain, palpitations, shortness of breath, difficulty breathing, abdominal pain, nausea, vomiting, diarrhea, urinary or bowel problems, lightheadedness, dizziness. Allergies Allergy/AdvReac Type Severity Reaction Status Date / Time No Known Allergies Allergy Unverified 10/18/23 14:24 Home Medications Medication Instructions Recorded Confirmed Type amlodipine 5 mg tablet 5 mg PO QAM 06/21/22 10/18/23 History levothyroxine 50 mcg tablet 50 mcg PO DAILYBB 06/21/22 10/18/23 History (Synthroid) lisinopril 20 mg tablet 20 mg PO QAM 06/21/22 10/18/23 History multivitamin 1 tab PO QAM 06/21/22 10/18/23 History sildenafil 25 mg tablet 25 mg PO UD PRN Sexual Activity 06/21/22 10/18/23 History simvastatin 20 mg tablet 20 mg PO HS 06/21/22 10/18/23 History cholecalciferol (vitamin D3) 25 25 mcg PO DAILY 10/18/23 10/18/23 History mcg (1,000 unit) tablet (Vitamin D3) cinnamon bark 500 mg capsule 500 mg PO DAILY 10/18/23 10/18/23 History (Cinnamon) glucosamine sulf dipot 1 cap PO DAILY 10/18/23 10/18/23 History chlr,msm,chond 550 mg-C 30 mg-nayana 1 mg capsule (Glucosamine Chondroitin) omega 9-gmj-vso-fish oil 1,000 mg 1 cap PO DAILY 10/18/23 10/18/23 History (120 mg-180 mg) capsule (Fish Oil) Patient History Medical History Erectile dysfunction Surgical History History of lumbar surgery History of appendectomy S/P total left hip arthroplasty No pertinent past surgical history Social History Smoking Status: Never smoker Second Hand Exposure: No; Do You Dip or Chew Tobacco: No; Tobacco Cessation Education Requested by Patient: No Hx Alcohol Use: No Hx Substance Use: No Preferred Language: Syrian Communication Ability: Effective Photographer Apprentice Required: No Beliefs That Will Affect Care: None Current Living Situation: Spouse Other Information That Helps Us Care for You: No Feels Safe at Home: Yes Safety Concerns: Feels Safe At This Time Assistive Devices: Cane Physical Exam Physical Exam: General: No acute distress, nondiaphoretic, well-developed, well-nourished. Skin: The skin was without rashes, erythema, edema, or bruising. Cardiac: Regular rate and rhythm without murmurs gallops or rubs. Pulm: Clear to auscultation bilaterally without wheezes, rales or rhonchi. No respiratory distress. 93% on room air. Abdominal: Soft, nontender, nondistended. Bowel sounds present. Neuro: A&O x3. No focal neurological deficits. MSK: Painful range of motion and stiffness of right hip with rotation. Sensory symmetric and intact. Results & Data Results & Data Vital Signs (Past 12 Hours) Vital Signs Temp Pulse Resp BP Pulse Ox O2 Del Method 10/19/23 19:51 36.8 C 89 17 114/68 93 Room Air 10/19/23 15:01 37.0 C 86 22 112/63 92 Room Air 10/19/23 11:09 36.8 C 76 18 122/72 Room Air Laboratory Results Reviewed CBC Reviewed chemistries Diagnostic Findings Hip MRI 10/19/23 11:06 MR hip RT wo con CLINICAL HISTORY: hip pain TECHNIQUE: Multisequence, multiplanar images of the right hip were obtained without the administration of intravenous gadolinium. Comparison: None available at the time of this dictation. FINDINGS: The visualized pelvic bones demonstrate normal marrow signal without focal abnormality. Left hip arthroplasty is seen. Right femoral head is intact without evidence of fracture. There are no findings to suggest iliopsoas or trochanteric bursitis and the capsular structures are free of tear. The iliopsoas, hamstring, and gluteus tendinous attachments are normal. There is no soft tissue mass or muscular atrophy. There is a tear of the anterior labrum. Osteoarthritic changes chondromalacia, marrow edema, and prominent joint fluid. The visualized portions of the intraperitoneal structures and pelvic sidewalls are normal apart from fat-containing left inguinal hernia and diverticulosis of the colon. IMPRESSION: Prominent osteoarthritic changes are seen with associated anterior labral degeneration/tear. No muscular injury is seen. ACT 112: Negative or not required by law. Electronically signed by: Jere Liu M.D. 10/19/2023 2:21 PM PG Care Time/CCT Total # of Minutes Spent Total Time Spent with Patient: Total time spent is greater than 50% in coordination of care (as documented) at patient's floor/unit and/or counseling patient: Coding Level of Care Code 08945 IN/OBS CONSULT LVL 3,45M Diagnoses Acute right lumbar radiculopathy M54.16 Hypertension I10 Hyperlipidemia E78.5 Hypothyroidism (acquired) E03.9
[2023-10-20 08:38] LABS: BUN Creatinine Ratio 27.8 (10-20); Calcium 9.1 mg/dl (8.6-10.3); Creatinine Clr Calc Pharmacy 95.4 ml/min; Est GFR (African American) 104.7 ml/min; Est GFR (Non-African American) 90.3 ml/min; Potassium 4.2 mmol/L (3.5-5.1)
[2023-10-20 08:44] LABS: Hematocrit (blood only) 40.3 % (42.0-52.0); Hemoglobin 13.2 g/dl (14.0-18.0); Mean Corpuscular Hemoglobin 28.1 pg (25.0-34.0); Mean Corpuscular Hgb Conc 32.8 g/dL (32.0-36.0); Mean Corpuscular Volume 85.7 fL (80.0-100.0); Mean Platelet Volume 10.2 fL (9.4-12.4); Platelet Count 243 K/uL (130-400); RDW Standard Deviation 46.8 fL (36.4-46.3); White Blood Count 9.32 K/ul (4.8-10.8)
--- NOTE | 2023-10-20 12:48 | History & Physical Bridge Note ---
Date of Service October 20, 2023 History & Physical Bridge Note I have examined the patient, reviewed the History & Physical and in the interval since the performance of the History & Physical I have noted the following changes of clinical significance: no changes noted
[2023-10-20] MEDS ORDERED: MIDAZOLAM HCL 1 MG/ML 2ML VIAL ONE ×2 (13:04→15:31)
[2023-10-20] MEDS ORDERED: ONDANSETRON INJ 2 MG/ML 2 ML VIAL ONE (13:04)
[2023-10-20] MEDS ORDERED: BUPIVACAINE 0.5 % 5 MG/1 ML PF 10ML VIAL ONE (13:04)
[2023-10-20] MEDS ORDERED: PROPOFOL IV EMULSION 10 MG/ML 20 ML VIAL IV ONE ×3 (13:04→15:46)
[2023-10-20] MEDS ORDERED: LIDOCAINE 2% 2 ML VIAL/AMP(20MG/ML) INFIL ONE ×2 (13:04→14:19)
[2023-10-20] MEDS ORDERED: DEXAMETHASONE SOD INJ 4 MG/ML VIAL ONE (13:04)
[2023-10-20] MEDS ORDERED: fentaNYL citrate PF 100 MCG/2 ML VIAL ONE (13:04)
--- NOTE | 2023-10-20 13:09 | Electrocardiogram Report ---
Test Reason : Blood Pressure : */* mmHG Vent. Rate : 82 BPM Atrial Rate : 82 BPM P-R Int : 152 ms QRS Dur : 92 ms QT Int : 370 ms P-R-T Axes : 21 34 7 degrees QTcB Int : 432 ms Normal sinus rhythm Normal ECG When compared with ECG of 22-Jun-2022 21:57, No significant change was found Confirmed by Fuad Sanchez ([id number]) on 10/20/2023 1:09:35 PM Referred By: REFERRED SELF Confirmed By: Fuad Sanchez
[2023-10-20] MEDS: LACTATED RINGER'S 1,000 ML IV SCH (13:42)
[2023-10-20] MEDS ORDERED: ePHEDrine sulfate 50 MG/ML AMP IV PRN (13:59)
[2023-10-20] MEDS ORDERED: ONDANSETRON INJ 2 MG/ML 2 ML VIAL IV PRN ×2 (13:59→17:25)
[2023-10-20] MEDS ORDERED: ATROPINE SULFATE 0.1 MG/ML 10ML SYR IV PRN (13:59)
[2023-10-20] MEDS ORDERED: fentaNYL citrate PF 100 MCG/2 ML VIAL IV PRN (13:59)
--- NOTE | 2023-10-20 13:59 | Anesthesiology Consultation ---
Date of Service October 20, 2023 Assessment & Plan (1) Encounter for pre-operative examination: Chart Review Chart Review: Acceptable Risk for Surgery and Patient NOT seen in Pre Admission Testing Consults Requested none History Surgery Operation Date: 10/20/23 14:20 Proposed Procedures p Right Total Hip Arthroplasty - Arley Parra MD Height/Weight Height: 5 ft 5 in Weight: 104.326 kg Allergies Allergy/AdvReac Type Severity Reaction Status Date / Time No Known Allergies Allergy Unverified 10/18/23 14:24 Medications Home Medications Medication Instructions Recorded Confirmed Last Taken amlodipine 5 mg tablet 5 mg PO QAM 06/21/22 10/18/23 10/17/23 levothyroxine 50 mcg tablet 50 mcg PO DAILYBB 06/21/22 10/18/23 10/18/23 (Synthroid) lisinopril 20 mg tablet 20 mg PO QAM 06/21/22 10/18/23 10/17/23 multivitamin 1 tab PO QAM 06/21/22 10/18/23 10/17/23 sildenafil 25 mg tablet 25 mg PO UD PRN Sexual Activity 06/21/22 10/18/23 Unknown simvastatin 20 mg tablet 20 mg PO HS 06/21/22 10/18/23 10/17/23 cholecalciferol (vitamin D3) 25 25 mcg PO DAILY 10/18/23 10/18/23 10/17/23 mcg (1,000 unit) tablet (Vitamin D3) cinnamon bark 500 mg capsule 500 mg PO DAILY 10/18/23 10/18/23 10/17/23 (Cinnamon) glucosamine sulf dipot 1 cap PO DAILY 10/18/23 10/18/23 10/17/23 chlr,msm,chond 550 mg-C 30 mg-nayana 1 mg capsule (Glucosamine Chondroitin) omega 2-pco-nev-fish oil 1,000 mg 1 cap PO DAILY 10/18/23 10/18/23 10/17/23 (120 mg-180 mg) capsule (Fish Oil) Active Medications Generic Name Dose Route Start Last Admin Trade Name Freq PRN Reason Stop Dose Admin Amlodipine Besylate 5 mg 10/18/23 21:00 10/19/23 20:55 Amlodipine Besylate 5 Mg Tab PO 11/17/23 20:59 5 mg HS ABDIRASHID Administration Lactated Ringer's 1,000 mls @ 75 mls/hr 10/18/23 16:30 10/20/23 08:47 Lr IV 11/17/23 16:29 75 mls/hr .[id number] ABDIRASHID Administration Lactated Ringer's 1,000 mls @ 15 mls/hr 10/20/23 13:45 10/20/23 13:42 Lr IV 11/19/23 13:44 15 mls/hr .Q24H ABDIRASHID Administration Levothyroxine Sodium 50 mcg 10/19/23 06:30 10/20/23 05:52 Levothyroxine Sodium 50 Mcg Tablet PO 11/18/23 06:29 Not Given DAILYBB ABDIRASHID Lisinopril 20 mg 10/18/23 21:00 10/19/23 20:55 Lisinopril 20 Mg Tab PO 11/17/23 20:59 20 mg HS ABDIRASHID Administration Simvastatin 20 mg 10/18/23 21:00 10/19/23 20:55 Simvastatin 20 Mg Tab PO 11/17/23 20:59 20 mg HS ABDIRASHID Administration NPO Date Last Intake of Fluids: 10/19/23 Time Last Intake of Fluids: 23:45 Date Last Intake of Solids: 10/19/23 Time Last Intake of Solids: 23:45 Past Medical History Medical History Erectile dysfunction Past Surgical History Surgical History History of lumbar surgery History of appendectomy S/P total left hip arthroplasty No pertinent past surgical history Social History Smoking Status: Never smoker Do You Dip or Chew Tobacco: No Hx Alcohol Use: No Hx Substance Use: No Physical Exam Vital Signs Last Vital Signs Temp 98.2 F 10/20/23 12:00 Pulse 73 10/20/23 12:00 Resp 20 10/20/23 12:00 BP 157/75 H 10/20/23 12:00 Pulse Ox 92 10/20/23 12:00 O2 Del Method Room Air 10/20/23 12:00 O2 Flow Rate 0 10/18/23 13:06 Testing Laboratory Results 10/20/23 07:47 10/20/23 07:47 Blood Type O Positive 10/19/23 19:37 Antibody Screen NEGATIVE 10/19/23 19:37 Electrocardiogram Date: 10/19/23 Findings: + NSR @
[2023-10-20] MEDS: TRANEXAMIC ACID / 0.7% NACL 1,000 MG/100 ML BAG IV ONE (14:14)
[2023-10-20] MEDS: ceFAZolin 2000MG 2,000 MG/15 ML SYR IV ONE (14:30)
[2023-10-20] MEDS: BUPIVACAINE/EPINEPHRINE 0.5% MPF 1:200,000 30 ML VIAL ONE (15:10)
[2023-10-20] MEDS ORDERED: PHENYLEPHRINE HCL 10 MG/ML VIAL ONE (15:25)
--- NOTE | 2023-10-20 16:09 | Operative Report ---
PG Post Operative Report Pre & Post Diagnosis Operation Date: 10/20/23 14:20 Pre-Op Diagnosis: Arthritis of Right Hip Post-Op Diagnosis: Arthritis of Right Hip I identified the patient and participated in the time-out.: Yes Procedure Operation Date: 10/20/23 14:20 Actual Procedures p Right Total Hip Arthroplasty(Right) - Arley Parra MD Surgeon Arley Parra MD Intellectual Property Lawyer Prakash Cochran PA-C Estimated Blood Loss 200 Findings Consistent with Post-Op Diagnosis Operative findings revealed advanced hip arthritis. He had a fairly large hip joint effusion. He had full-thickness cartilage loss on the femoral head on spots. Not much in the way of osteophyte formation and no eburnation. Did appear to have some chondrocalcinosis. Very thick and torn labrum. Specimens Right femoral head sent for pathology. Anesthesia Type Spinal MAC Complications none Disposition Accompanied Patient To Recovery: No Indications Patient is a 73-year-old very active gentleman whose had a history of progressive right hip pain discomfort over the past several months its become debilitating. He was admitted to the hospital with severe pain and ambulatory dysfunction. He underwent extensive evaluation by the spine team as well as the orthopedic team. It was not felt to be coming from his back. He failed all conservative measures in the past month or 2. The x-rays and MRI showed a progressive hip arthritis. He elected proceed with total hip arthroplasty. Description of Procedure Operative implants consist of: 1. Biomet G7 size 56 mm acetabular shell. 2. 6.5 cancellous acetabular screws 1 of 35 mm length of 0.30 mm length. 3. Combined [place]ocks hole technical assistance consultant. 4. Highly cross-linked polyethylene liner with a 56 mm outer diameter 40 mm inner diameter. 5. DePuy Karaya size 12 KLA femoral stem. 6. +5/40 mm ceramic articular ball. The patient was taken the operating, identified, placed on the operating table in the supine position. All contact was appropriately padded. IV antibiotics were provided by anesthesia team. He also got a gram of TXA. Spinal anesthetic and been implemented holding area. Patient was then placed in the left lateral decubitus position. Axillary roll was placed. A stool Birkett position was used for positioning. The right hip and leg were then prepped and draped in usual sterile fashion. A posterolateral approach to the right hip was then performed to a curvilinear incision centered over the greater trochanter. Sharp dissection Through subcutaneous tissue down to the IT band gluteal fascia. The IT band gluteal fascia/longitudinally in line with skin incision. The underlying greater bursa was excised. The piriformis and external rotators along with the posterior hip joint capsule were then released from the posterior aspect the hip as a single layer. Great care was taken throughout the procedure protect the sciatic nerve at all times. Hip was internally rotated and dislocated. He had a fairly long femoral neck. The femoral neck osteotomy cut was made about 20 mm above the lesser trochanter. Femoral head was removed and sent for pathology. The femur was retracted anteriorly. Attention drawn the acetabulum. The acetabular labrum was excised. It was fairly hypertrophic. Sequential reaming the acetabulum was then performed again with a size 47 progressing up to 55. I did ream with a 56 reamer. A 56 mm Biomet G7 acetabular shell was then placed in about 40 degrees lateral opening and 20 degrees of anteversion. It was fixed with two 6.5 screws. The trial liner was placed. Attention drawn the femur. The proximal femur was entered with a [employer] cutter followed by canal finder. I then broached beginning the size 8 and progressing up to 12. Got excellent fit the 12 and I could not quite get the 12 down. The 11 was felt a little bit to reduce. We then trialed the hip and the +5 articular ball provided full stability in full extension and external rotation flexion to 90 degrees internal Tatian about 40 to 50 degrees. We elect to use a 48 head and a posterior lipped liner to maximize the stability in flexion. He was little bit tight in extension. Leg lengths seemed appropriate. He was fairly short preoperatively and we wanted to lengthen him somewhat. These implants seem to provide the appropriate soft tissue tension and leg lengthening his close as I felt possible. We elect place his implants. All trial implants were removed. An apex hole technical assistance consultant was placed. Highly cross-linked polyethylene liner was placed with a roberto placed inferior and posterior. A size 12 KLA femoral stem was impacted in position. Was left about a millimeter proud. A +5/40 mm ceramic articular ball was placed. Hip was located and once again found to be stable. Attention drawn toward closing. Wounds irrigated coconuts pulsatile lavage solution. I did inject locally with 60 cc of half percent Marcaine with epinephrine. The posterior capsule and external rotators were repaired through drill holes in the posterior trochanter with #2 Tycron suture. The IT band gluteal fascia then closed in 1 PDS suture running fashion. Subcutaneous tissues then closed with 2 layers with deep layer #1 Vicryl suture and subcutaneous tissues with 2-0 Dexon suture in a buried interrupted fashion. The skin was closed with skin nery. Leg was then cleaned and dried and sterile dressed with Xeroform, 4 fours, ABD pad and foam tape was applied. Patient was then transferred to the recovery room in stable condition. The patient tolerated procedure well and there were no complications. Prakash Cochran, my physician patient assistant, was present for the entire procedure. His assistance was essential and required for appropriate patient positioning, prepping and draping, surgical exposure, performing the technical details of the operation, placement the implants, closure of the wound, and placement of the sterile bandage. I attest to the content of the Intraoperative Record and any orders documented therein. Any exceptions are noted below.
--- NOTE | 2023-10-20 16:41 | XRay Report ---
XR hip 1V RT w pelvis CLINICAL HISTORY: Postoperative evaluation. COMPARISON: MRI of the right hip October 19, 2023. Right hip radiographs September 23, 2023. FINDINGS: Alignment of the total right hip arthroplasty is anatomic. There is no periprosthetic frac ture or unexpected radiopaque foreign body. There are skin nery. Left hip arthroplasty is intact. Postoperative findings within the lumbosacral spine are partially imaged. IMPRESSION: Expected findings following total right hip arthroplasty. ACT 112: Negative or not required by law. Electronically signed by: Eduard Pérez M.D. 10/20/2023 4:38 PM
--- NOTE | 2023-10-20 16:55 | Anesthesiology Progress Note ---
Date of Service October 20, 2023 Anesthesia Post Procedure Vital Signs Vital Signs: Temp Pulse Pulse Resp BP Pulse Ox O2 Del Method 10/20/23 16:30 78 19 124/63 93 Oxymask 10/20/23 16:20 80 18 120/64 94 Oxymask 10/20/23 16:10 82 19 119/63 93 Oxymask 10/20/23 16:03 36.1 C L 87 21 116/54 L 93 Oxymask 10/20/23 12:00 36.8 C 73 20 157/75 H 92 Room Air 10/20/23 07:45 Room Air 10/20/23 07:26 36.8 C 75 16 129/67 96 Room Air 10/19/23 19:51 36.8 C 89 17 114/68 93 Room Air O2 Flow Rate 10/20/23 16:30 5 10/20/23 16:20 5 10/20/23 16:10 5 10/20/23 16:03 5 10/20/23 12:00 10/20/23 07:45 10/20/23 07:26 10/19/23 19:51 Pain Intensity Right Lower Back: Pain Intensity: 3 Transfer of Care Handoff Completed per policy Notes Mental Status: alert / awake / arousable and participated in evaluation Patient Amnestic to Procedure: Yes Nausea / Vomiting: adequately controlled Pain: adequately controlled Airway Patency, RR, SpO2: stable & adequate BP & HR: stable & adequate Hydration State: stable & adequate Anesthetic Complications: no major complications apparent and Pt Satisfied with anesthetic care
[2023-10-20] MEDS ORDERED: TAMSULOSIN HCL 0.4 MG CAP PO PRN (17:25)
[2023-10-20] MEDS ORDERED: HYDROmorphone INJ 0.5 MG/0.5 ML SYR IV PRN (17:25)
[2023-10-20] MEDS ORDERED: ALUMINUM/MAGNESIUM SUSP 30 ML UDC PO PRN (17:25)
[2023-10-20] MEDS ORDERED: METOCLOPRAMIDE HCL INJ 5 MG/ML 2 ML VIAL IV PRN (17:25)
[2023-10-20] MEDS ORDERED: NALOXONE HCL 0.4 MG/1 ML VIAL/CARP IV PRN (17:25)
[2023-10-20] MEDS ORDERED: MAGNESIUM HYDROXIDE SUSP 30 ML UDC PO PRN (17:25)
[2023-10-20] MEDS ORDERED: bisacodyL 10 MG SUPP PR PRN (17:25)
[2023-10-20] MEDS ORDERED: oxyCODONE HCL IR 5 MG TAB (IMMEDIATE RELEASE) PO PRN (17:25)
[2023-10-20] MEDS: SODIUM CHLORIDE 0.9% 1,000 ML IV SCH (17:41)
--- NOTE | 2023-10-20 18:31 | Hospitalist Progress Note ---
Date of Service October 20, 2023 Assessment & Plan (1) Acute right lumbar radiculopathy: Plan: Management per primary team Right total hip arthroplasty with Dr. Parra on 10/20/2023 Per operative report, estimated blood loss 200 cc, no complications noted. (2) Hypertension: Plan: Blood pressures have remained stable while inpatient Continue amlodipine 5 mg daily Continue lisinopril 20 mg daily (3) Hyperlipidemia: Plan: Continue simvastatin 20 mg daily (4) Hypothyroidism (acquired): Plan: Continue levothyroxine 50 mcg daily Plan Hospitalist service will continue to follow. Please reach out with any q uestions or concerns. CODE STATUS: Full code Admission and Anticipated Discharge Date Admission Date: October 18, 2023 Supervising Physician Co-Signing Physician Notes Attending Attestation - Chart reviewed, care plan d/w FERNANDO Nayak. I agree w/ the arvizu components of her consult documentation. Vladimir Suh MD Subjective Patient seen and evaluated at bedside postop. He had right total hip arthroplasty with Dr. Parra today. He denies any pain at this time. Denies chest pain, shortness of breath, nausea, lightheadedness. He has not yet voided postop. Encouraged the patient to utilize his as needed pain medications to prevent any pain from getting ahead of him. No additional complaints or concerns at this time. Physical Exam 2 Physical Exam: General: No acute distress, nondiaphoretic, well-developed, well-nourished. Skin: The skin was without rashes, erythema, edema, or bruising. Postoperative dressing in place, clean, dry, intact. Cardiac: Regular rate and rhythm without murmurs gallops or rubs. Pulm: Clear to auscultation bilaterally without wheezes, rales or rhonchi. No respiratory distress. 92% on 2L NC. Abdominal: Soft, nontender, nondistended. Bowel sounds present. Neuro: A&O x3. No focal neurological deficits. Results & Data Results & Data Vital Signs (Past 12 Hours) Vital Signs Temp Pulse Pulse Resp BP Pulse Ox O2 Del Method 10/20/23 17:42 36.3 C L 73 137/81 92 Nasal Cannula 10/20/23 17:15 36.4 C L 73 14 123/74 93 Nasal Cannula 10/20/23 17:00 36.4 C L 78 21 122/64 94 Nasal Cannula 10/20/23 16:50 78 19 125/64 94 Nasal Cannula 10/20/23 16:40 80 20 128/65 94 Nasal Cannula 10/20/23 16:30 78 19 124/63 93 Oxymask 10/20/23 16:20 80 18 120/64 94 Oxymask 10/20/23 16:10 82 19 119/63 93 Oxymask 10/20/23 16:03 36.1 C L 87 21 116/54 L 93 Oxymask 10/20/23 12:00 36.8 C 73 20 157/75 H 92 Room Air 10/20/23 07:45 Room Air 10/20/23 07:26 36.8 C 75 16 129/67 96 Room Air O2 Flow Rate 10/20/23 17:42 2 10/20/23 17:15 2 10/20/23 17:00 2 10/20/23 16:50 4 10/20/23 16:40 4 10/20/23 16:30 5 10/20/23 16:20 5 10/20/23 16:10 5 10/20/23 16:03 5 10/20/23 12:00 10/20/23 07:45 10/20/23 07:26 Laboratory Results Reviewed CBC Reviewed BMP PG Care Time/CCT Total # of Minutes Spent Total Time Spent with Patient: Total time spent is greater than 50% in coordination of care (as documented) at patient's floor/unit and/or counseling patient: Coding Level of Care Code 71785 SUB INP/OBS CARE 2/35MIN Diagnoses Acute right lumbar radiculopathy M54.16 Hypertension I10 Hyperlipidemia E78.5 Hypothyroidism (acquired) E03.9
[2023-10-20] MEDS: KETOROLAC TROMETHAMINE 15 MG/ML VIAL IV SCH (18:41)
[2023-10-20] MEDS: ASCORBIC ACID 500 MG TAB PO SCH (19:06)
[2023-10-20] MEDS: SENNA 8.6 MG TAB PO SCH (20:17)
[2023-10-20] MEDS: ASPIRIN 81 MG ECTAB PO SCH (20:17)
[2023-10-20] MEDS: DOCUSATE SODIUM 100 MG CAP PO SCH (20:17)
[2023-10-20] MEDS: ceFAZolin 2000MG 2,000 MG/15 ML SYR IV SCH (22:15)
[2023-10-20] MEDS: ACETAMINOPHEN 500 MG TAB PO SCH (22:15)
[2023-10-20] MEDS: TRANEXAMIC ACID / 0.7% NACL 1,000 MG/100 ML BAG IV SCH (22:16)
[2023-10-21 03:29] VITALS: O2SAT 93
--- NOTE | 2023-10-21 07:04 | Orthopedic Progress Note ---
Date of Service October 21, 2023 Assessment & Plan (1) Status post right hip replacement: Plan: 73-year-old gentleman postop day 1 from a right hip replacement for progressive hip arthritis. He seems to be doing pretty well this morning. Hips located. He is neurologically intact. Pain seems to be controlled. Plan: 1. DVT prophylaxis including thigh-high teds, SCDs, aspirin twice a day. 2. PT/OT. He can weight-bear as tolerated. Right total hip protocol. 3. Pain control doing okay with current pain regimen. 4. Disposition plan is to discharge him to home with some home health if he does okay in therapy. Admission and Anticipated Discharge Date Admission Date: October 18, 2023 Subjective 73-year-old gentleman postop day 1 from a right uncemented hip replacement for fairly rapidly progressive arthritis. He is doing pretty well this morning. Has been up and walking some. No chest pain or shortness of breath. Pretty typical soreness. Denies any chest pain or shortness of breath. Physical Exam Physical Exam: Physical exam shows a pleasant middle-age male. He is sitting in his bedside looks pretty comfortable. Examination of the right hip and leg reveals the dressing be clean dry and intact. Thigh is soft and supple. Leg lengths appear pretty equal. He can dorsiflex and plantarflex his foot appropriately. Respiratory: normal respiratory effort, lungs clear to auscultation Cardiovascular: RRR, no murmur, no edema Gastrointestinal (Abdomen): normal bowel sounds, soft, nontender, no hepatosplenomegaly Results & Data Vital Signs (Past 12 Hours) Vital Signs Temp Pulse Resp BP Pulse Ox O2 Del Method O2 Flow Rate 10/21/23 03:00 36.9 C 85 18 164/68 H 93 Nasal Cannula 2 10/20/23 23:14 37.1 C 86 18 142/82 H 94 Nasal Cannula 2 10/20/23 22:19 186/92 H 10/20/23 20:45 Nasal Cannula 2 10/20/23 20:15 36.3 C L 85 18 182/94 H 93 Nasal Cannula 2 10/20/23 19:15 36.3 C L 76 18 169/78 H 93 Nasal Cannula 2 Laboratory Results Labs are pending.
[2023-10-21 07:35] LABS: Basophils # (auto) 0.05 K/uL (0.00-0.20); Basophils % (auto) 0.4 %; Eosinophils # (auto) 0.13 K/uL (0.00-0.50); Eosinophils % (auto) 1.1 %; Hematocrit (blood only) 35.9 % (42.0-52.0); Hemoglobin 12.2 g/dl (14.0-18.0); Immature Granulocytes # (auto) 0.05 K/uL (0.01-0.20); Immature Granulocytes % (auto) 0.4 %; Lymphocytes # (auto) 1.82 K/uL (1.20-3.40); Lymphocytes % (auto) 15.3 %; Mean Corpuscular Hemoglobin 28.8 pg (25.0-34.0); Mean Corpuscular Volume 84.9 fL (80.0-100.0); Mean Platelet Volume 10.8 fL (9.4-12.4); Monocytes # (auto) 1.14 K/uL (0.11-0.59); Monocytes % (auto) 9.6 %; Neutrophils # (auto) 8.73 K/uL (1.40-6.50); Neutrophils % (auto) 73.2 %; Platelet Count 244 K/uL (130-400); RDW Coefficient of Variation 14.9 % (11.5-14.5); RDW Standard Deviation 45.9 fL (36.4-46.3); Red Blood Count 4.23 M/uL (4.70-6.10); White Blood Count 11.92 K/ul (4.8-10.8)
[2023-10-21 07:40] VITALS: RESP 16; TEMP 98.6
[2023-10-21 08:16] LABS: BUN Creatinine Ratio 29.2 (10-20); Calcium 8.5 mg/dl (8.6-10.3); Creatinine Clr Calc Pharmacy 84.7 ml/min; Est GFR (African American) 99.7 ml/min; Potassium 4.2 mmol/L (3.5-5.1)
[2023-10-21] MEDS: MULTIVITAMIN TAB PO SCH (08:33)
[2023-10-21] MEDS: OMEGA-3 (PURIFIED FISH OIL) 1 GM CAP PO SCH (08:33)
[2023-10-21] MEDS: dexAMETHasone 10 MG in SYRINGE 0 ML IV SCH (08:33)
[2023-10-21] MEDS: CHOLECALCIFEROL 25 MCG (1000 UNITS) TAB PO SCH (08:33)
[2023-10-21] MEDS ORDERED: NON-FORMULARY MEDICATION (Cinnamon Bark [Cinnamon] 500 mg Capsule) PO SCH (09:00)
[2023-10-21 10:05] VITALS: BP 147/86; PULSE 78
--- NOTE | 2023-10-21 10:56 | Hospitalist Progress Note ---
Date of Service October 21, 2023 Assessment & Plan (1) Acute right lumbar radiculopathy: Plan: Management per primary team Right total hip arthroplasty with Dr. Parra on 10/20/2023 Per operative report, estimated blood loss 200 cc, no complications noted. (2) Hypertension: Plan: Blood pressures have remained stable while inpatient Continue amlodipine 5 mg daily Continue lisinopril 20 mg daily (3) Hyperlipidemia: Plan: Continue simvastatin 20 mg daily (4) Hypothyroidism (acquired): Plan: Continue levothyroxine 50 mcg daily Plan Patient is medically stable for discharge from hospital medicine's perspective. We will sign off at this time. Please reach out with any questions or concerns. CODE STATUS: Full code Admission and Anticipated Discharge Date Admission Date: October 18, 2023 Supervising Physician Co-Signing Physician Notes Attending Attestation - Chart reviewed, care plan d/w FERNANDO Nayak. I agree w/ the arvizu components of her consult documentation. Vladimir Suh MD Subjective Patient seen and evaluated at bedside. He is doing well postoperatively. He reports that the pain in his right hip/groin has resolved since surgery. He notes the pain around his incision site is well-controlled with medication. He has been walking the halls well and has passed gas. His vital signs and labs have been stable postop. Patient is medically stable for discharge from hospital medicine's perspective. We will sign off at this time. Physical Exam Physical Exam: General: No acute distress, nondiaphoretic, well-developed, well-nourished. Skin: The skin was without rashes, erythema, edema, or bruising. Postoperative dressing in place, clean, dry, intact. Cardiac: Regular rate and rhythm without murmurs gallops or rubs. Pulm: Clear to auscultation bilaterally without wheezes, rales or rhonchi. No respiratory distress. 93% on room air. Abdominal: Soft, nontender, nondistended. Bowel sounds present. Neuro: A&O x3. No focal neurological deficits. Results & Data Results & Data Vital Signs (Past 12 Hours) Vital Signs Temp Pulse Pulse Resp BP BP Pulse Ox 10/21/23 10:05 37.0 C 78 83 16 144/72 H 147/86 H 93 10/21/23 07:39 37.0 C 83 16 144/72 H 93 10/21/23 03:00 36.9 C 85 18 164/68 H 93 10/20/23 23:14 37.1 C 86 18 142/82 H 94 O2 Del Method O2 Flow Rate 10/21/23 10:05 10/21/23 07:39 Room Air 10/21/23 03:00 Nasal Cannula 2 10/20/23 23:14 Nasal Cannula 2 Laboratory Results Reviewed CBC Reviewed BMP PG Care Time/CCT Total # of Minutes Spent Total Time Spent with Patient: Total time spent is greater than 50% in coordination of care (as documented) at patient's floor/unit and/or counseling patient: Coding Level of Care Code 15694 SUB INP/OBS CARE 2/35MIN Diagnoses Acute right lumbar radiculopathy M54.16 Hypertension I10 Hyperlipidemia E78.5 Hypothyroidism (acquired) E03.9
== END 2023-10-21 13:03 | disposition home health service (06) | DRG 470 ==
LOC: ED 09:40 → 3W 13:26